=== PATIENT | female | born 1960 | race Caucasian/White ===

== ENCOUNTER → 2017-11-15 | Outpatient (CLI) | payer BC ==
[~2017-11-15] MED LIST: ACID REDUCER PO; CHOL100010 PO; CLC100; CLCC1250 PO; CMDUNK; FRRS300 PO; LRT5 PO; MULT-513 PO; OMEG10007 PO; POTASSIUM PO; PRCUNK; SIMV20TA2 PO
--- NOTE | 2017-11-16 14:34 | MAMMOGRAPHY REPORT ---
BILATERAL DIGITAL SCREENING MAMMOGRAM TOMOSYNTHESIS WITH CAD: 11/15/2017 CLINICAL HISTORY: Routine screening. TECHNIQUE: Breast tomosynthesis in addition to standard 2D mammography was performed. Current study was also evaluated with a Computer Aided Detection (CAD) system. COMPARISON: Comparison is made to exams dated: 11/09/2016 mammogram, 11/05/2015 mammogram, 4 mammogram, 04/07/2011 mammogram - [facility], 11/16/2009 mammogram, and 05/25/2007 mammogram - [facility]. BREAST COMPOSITION: There are scattered areas of fibroglandular density in both breasts. FINDINGS: Multiple bilateral circumscribed fluctuating masses are again seen in the breasts, most lik grace functioning cysts. There are a few benign rim calcifications. No suspicious spiculated or irreg ular mass, architectural distortion or cluster of suspicious microcalcifications is seen. IMPRESSION: ACR BI-RADS CATEGORY 1: NEGATIVE There is no mammographic evidence of malignancy. A 1 year screening mammogram is recommended. The pa tient will receive written notification of the results. Approximately 10% of breast cancers are not detected with mammography. A negative mammographic report should not delay biopsy if a clinically suggestive mass is present. Justine Jane M.D. ay/:11/15/2017 17:11:51 Wrapper Stemmer Hand: Leda JONES(R)(M), [facility] letter sent: Normal 1/2 BI-RADS Code: ACR BI-RADS Category 1: Negative
== END | disposition home or self-care (01) ==
LOC: C.MAMM 16:51
PROVIDERS: ATTEND Family Medicine
DX: Z12.31 Encounter for screening mammogram for malignant neoplasm of breast (principal)

== ENCOUNTER → 2018-02-09 | Outpatient (CLI) | payer OTHER | END | disposition home or self-care (01) | LOC: C.PAPS 18:19 | PROVIDERS: ATTEND Family Medicine | DX: Z01.419 Encounter for gynecological examination (general) (routine) without abnormal findings (principal) ==

== ENCOUNTER 2022-10-26 10:40 | Inpatient (IN) ==
[2022-10-26] MEDS ORDERED: PIPERACILLIN/TAZOBACTAM 4.5 GM/120 ML BAG IV ONE (10:56)
[2022-10-26] MEDS ORDERED: SODIUM CHLORIDE 0.9% 1000ML 1,000 ML IV ONE (10:56)
[2022-10-26] MEDS ORDERED: ACETAMINOPHEN 1,000 MG/100 ML VIAL IV STA (10:56)
[2022-10-26 11:37] LABS: Basophils # (auto) 0.04 K/uL (0-0.2); Basophils % (auto) 0.4 %; Hematocrit (blood only) 40.2 % (34.1-44.9); Hemoglobin 13.4 g/dl (12.0-16.0); Immature Granulocytes # (auto) 0.03 K/uL (0.00-0.02); Immature Granulocytes % (auto) 0.3 %; Lymphocytes # (auto) 1.86 K/uL (1.2-3.4); Lymphocytes % (auto) 17.6 %; Mean Corpuscular Hemoglobin 28.1 pg (25.0-34.0); Mean Corpuscular Hgb Conc 33.3 g/dL (32.0-36.0); Mean Corpuscular Volume 84.3 fL (80.0-100.0); Mean Platelet Volume 9.7 fL (9.4-12.3); Monocytes # (auto) 0.99 K/uL (0.24-0.82); Monocytes % (auto) 9.3 %; Neutrophils # (auto) 7.67 K/uL (1.4-6.5); Neutrophils % (auto) 72.4 %; Platelet Count 353 K/uL (130-400); RDW Coefficient of Variation 14.5 % (11.5-14.5); RDW Standard Deviation 44.3 fL (36.4-46.3); Red Blood Count 4.77 M/uL (3.93-5.22); White Blood Count 10.59 K/ul (4.8-10.8)
[2022-10-26 12:02] LABS: Albumin Globulin Ratio 1.2 (0.9-2); Albumin Level 4.2 gm/dl (3.4-5.0); BUN Creatinine Ratio 11.7 (10-20); Bilirubin,Total 0.7 mg/dl (0.2-1.0); Calcium 10.3 mg/dl (8.5-10.1); Creatinine Clr Calc Pharmacy 46.4 ml/min; Est GFR (African American) 74.8 ml/min; Est GFR (Non-African American) 64.6 ml/min; Globulin 3.4 gm/dl (2.5-4.0); Potassium 3.6 mmol/L (3.5-5.1); Total Protein 7.6 gm/dl (6.0-8.3)
--- NOTE | 2022-10-26 12:23 | Emergency Department Note ---
Impression & Plan Diverticulitis of intestine with abscess, Left lower quadrant abdominal pain, Nausea ED Provider Note NAME: VANDANA VALENCIA AGE: 61 SEX: F ARRIVES VIA: Walk-In INFORMANT: ED PROVIDER(S): Scotty Pugh MD CHIEF COMPLAINT: Abdominal pain, diverticulitis with intramural abscess. Referred. PLAN: Disposition: Admit MEDICAL DECISION MAKING: The patient is a pleasant 61-year-old woman with a pmhx GERD who presents to the emergency department referred by her PCP for evaluation after having outpatient CT scan for left lower quadrant abdominal pain that showed diverticulitis with intramural abscess not amenable to percutaneous drainage. Patient reports she has had ongoing pain for the past month that worsened over the past week with associated nausea and vomiting that admits she has a history of reflux as well. She is also had intermittent diarrhea. She denies fevers, chest pain, shortness of breath, urinary symptoms. She has any prior history of diverticulitis. On arrival the patient is in no acute distress, afebrile with stable vital signs. She has mild left lower quadrant tenderness without guarding or rebound. WBC, H/H and platelets within normal limits. Chemistry without metabolic acidosis. Electrolytes and LFTs unremarkable. Lipase within normal limits. COVID-19 RNA, RAYNA test was negative. Blood cultures were drawn and patient was ordered for IV Zosyn given intramural abscess. Patient agrees with plan for admission. Case was discussed with [place]. Jules, [facility] [place], who will evaluate the patient for admission. Triage Nursing notes reviewed and agree them. Prior medical records reviewed Vital Signs: reviewed Differential diagnosis: Gastroenteritis, food borne illness, infections, appendicitis, diverticulitis, inflammatory bowel disease, obstruction, GI bleed, biliary pathology, volvulus, as well as other pathologies. ER treatment provided: See below. Diagnostics interpreted by me: Cardiac Monitoring: An order for continuous cardiac monitoring was placed and demonstrated normal sinus rhythm, 69 bpm, no ectopy. Laboratory studies: See below Imaging studies: See below Consultation(s): Case was discussed with Dr. Jules, [facility] [place], who will evaluate the patient for admission. HPI: The patient is a pleasant 61-year-old woman with a pmhx GERD who presents to the emergency department referred by her PCP for evaluation after having outpatient CT scan for left lower quadrant abdominal pain that showed diverticulitis with intramural abscess not amenable to percutaneous drainage. Patient reports she has had ongoing pain for the past month that worsened over the past week with associated nausea and vomiting that admits she has a history of reflux as well. She is also had intermittent diarrhea. She denies fevers, chest pain, shortness of breath, urinary symptoms. She has any prior history of diverticulitis. ROS: See above HPI for pertinent positives & negatives. A total of 10 systems reviewed and were otherwise negative. VITALS:See Below PHYSICAL EXAMINATION: GENERAL: Awake, alert, well-appearing, in no distress HENT: Normocephalic, atraumatic. Oropharynx with dry mucous membranes and otherwise unremarkable. EYES: Normal conjunctiva. Sclera non-icteric. NECK: Supple. No nuchal rigidity. FROM. No JVD. RESPIRATORY: Clear to auscultation. CARDIAC: Regular rate, normal rhythm. Extremities warm and well perfused. Pulses equal. ABDOMEN: Soft, non-distended. Mild left lower quadrant tenderness without guarding or rebound. RECTAL: Deferred. MUSCULOSKELETAL: Chest examination reveals no tenderness. The back is symmetrical on inspection without obvious abnormality. There is no CVA tenderness to palpation. No joint edema. LOWER EXTREMITIES: Calves are equal size bilaterally and non-tender. No edema. No discoloration. NEURO: Normal sensorium. No sensory or motor deficits noted. SKIN: No rash or jaundice noted. Scotty Pugh MD Past Med/Surg History Medical History Gastritis Hyperlipidemia Internal hemorrhoids Major depression, recurrent Surgical History H/O arthroscopic knee surgery History of colonoscopy History of hip surgery Family History Mother Stroke CHF (congestive heart failure) Brother Rheumatic fever Social History Smoking Status: Never smoker Hx Alcohol Use: No Hx Substance Use: No Preferred Language: Hebrew Visual Impairment: Limited Hearing Ability: Hard of Hearing marital status: Current Living Situation: Spouse current occupational status: unemployed Feels Safe at Home: Yes Childhood Exposure to Second-Hand Smoke: Yes Dental Care, Regularly: Yes Physical Activity Frequency: Does not Exercise Seatbelt Use: always Sunscreen Use: Yes Allergies Allergies Allergy/AdvReac Type Severity Reaction Status Date / Time No Known Allergies Allergy Unknown Verified 10/26/22 12:47 Home Meds Home Medications Medication Instructions Recorded Confirmed garlic 500 mg capsule 500 mg PO DAILY 08/20/21 10/26/22 diclofenac sodium 1 % topical gel 2 g topical QID PRN Pain 02/03/22 10/26/22 (Voltaren Arthritis Pain) escitalopram oxalate 20 mg tablet 20 mg PO QPM 10/26/22 10/26/22 Previous Rx's Medication Instructions Recorded multivitamin 1 tab PO DAILY #90 tabs 07/01/19 clotrimazole-betamethasone 1 1 appln topical BID #45 grams 07/08/19 %-0.05 % topical cream hydrocortisone 2.5 % topical cream 1 applic [place] DAILY PRN hemorrhoids 02/03/22 with perineal applicator #30 grams (Anusol-HC) bupropion HCl 150 mg tablet,12 hr 300 mg PO DAILY PRN depression 08/15/22 sustained-release (Wellbutrin SR) #180 ea lurasidone 20 mg tablet (Latuda) 20 mg PO DAILY #90 tabs 08/15/22 omeprazole 20 mg capsule,delayed 20 mg PO BID #180 caps 08/15/22 release lovastatin 40 mg tablet 40 mg PO HS #90 tabs 08/22/22 Results & Data (ED) Vital Signs Vital Signs - 24 hr 10/26/22 10:43 10/26/22 11:16 10/26/22 11:16 Temperature 36.8 C Temperature Source Temporal Artery Scan Pulse Rate 80 Pulse Rate [Apical] 72 Pulse Rhythm [Apical] Regular Pulse Strength [Apical] Normal Respiratory Rate 18 17 Respiratory Effort / Characteristics Non-Labored Respiratory Depth Normal Respiratory Pattern Regular Blood Pressure 144/88 H Blood Pressure [Left Arm] 121/62 Blood Pressure Mean 106 Blood Pressure Mean [Left Arm] 81 Blood Pressure Position [Left Arm] Lying Pulse Oximetry 93 94 94 Oxygen Delivery Method Room Air Room Air Room Air Sepsis Recent Fever Within 48 Hours No Sepsis New/Unexplained Change in Mental Status No Sepsis Action Taken by Nursing No Action Required Laboratory Data Attestation: I reviewed the patient's lab results. Result diagrams: 10/26/22 11:20 10/26/22 11:20 Lab Results 10/26/22 10/26/2210/26/22 Range/Units 11:20 11:20 11:31 WBC 10.59 (4.8-10.8) K/ul RBC 4.77 (3.93-5.22) M/uL Hgb 13.4 (12.0-16.0) g/dl Hct 40.2 (34.1-44.9) % MCV 84.3 (80.0-100.0) fL MCH 28.1 (25.0-34.0) pg MCHC 33.3 (32.0-36.0) g/dL RDW Std Deviation 44.3 (36.4-46.3) fL RDW Coeff of Patrica 14.5 (11.5-14.5) % Plt Count 353 (130-400) K/uL MPV 9.7 (9.4-12.3) fL Immature Gran % (Auto) 0.3 % Neut % (Auto) 72.4 % Lymph % (Auto) 17.6 % Glenn % (Auto) 9.3 % Eos % (Auto) 0.0 % Baso % (Auto) 0.4 % Neut # (Auto) 7.67 H (1.4-6.5) K/uL Lymph # (Auto) 1.86 (1.2-3.4) K/uL Glenn # (Auto) 0.99 H (0.24-0.82) K/uL Eos # (Auto) 0.00 (0-0.50) K/uL Baso # (Auto) 0.04 (0-0.2) K/uL Immature Gran # (Auto) 0.03 H (0.00-0.02) K/uL Sodium 140 (136-145) mmol/L Potassium 3.6 (3.5-5.1) mmol/L Chloride 103 (98-107) mmol/L Carbon Dioxide 28 (21-32) mmol/L Anion Gap 9 (3-11) BUN 11 (6-23) mg/dl Creatinine 0.94 (0.6-1.2) mg/dl Est Cr Clr Drug Dosing 46.4 ml/min Est GFR ( Amer) 74.8 ml/min Est GFR (Non-Af Amer) 64.6 ml/min BUN/Creatinine Ratio 11.7 (10-20) Glucose 113 H (70-99(Fasting)) mg/dl Calcium 10.3 H (8.5-10.1) mg/dl Total Bilirubin 0.7 (0.2-1.0) mg/dl AST 24 (13-39) U/L ALT 31 (7-52) U/L Alkaline Phosphatase 118 H (34-104) U/L Total Protein 7.6 (6.0-8.3) gm/dl Albumin 4.2 (3.4-5.0) gm/dl Globulin 3.4 (2.5-4.0) gm/dl Albumin/Globulin Ratio 1.2 (0.9-2) Lipase 12 (11-82) U/L SARS-CoV-2, RNA, NAAT NEGATIVE (NEGATIVE) Administered Medications Piperacillin Sod/Tazobactam (Sod 3.375 gm/ Dextrose) 115 mls @ 30 mls/hr IV Q8H FOR[facility]LY [facility], 1928–1983; Protocol Stop: 11/05/22 15:59 Last Admin: 10/26/22 16:44 Dose: 30 mls/hr Documented By: HEIKE Potassium Chloride/Sodium Chloride (Normal Saline W/20 Meq Kcl) 20 meq in 1,000 mls @ 85 mls/hr IV .[id number] FOR[facility]LY [facility], 1928–1983; Protocol Stop: 11/25/22 15:13 Last Admin: 10/26/22 16:44 Dose: 85 mls/hr Documented By: HEIKE Morphine Sulfate (Morphine Sulfate 4 Mg/Ml 1 Ml Carp\Vial) 4 mg IV Q4 PRN PRN Reason: Severe Pain Stop: 11/09/22 15:13 Last Admin: 10/26/22 16:52 Dose: 4 mg Documented By: RSMagno Ondansetron HCl (Ondansetron Inj 2 Mg/Ml 2 Ml Vial) 4 mg IV Q6H PRN PRN Reason: Nausea Stop: 11/25/22 15:13 Last Admin: 10/26/22 16:53 Dose: 4 mg Documented By: RSMagno Discontinued Medications Sodium Chloride (Nss 1000ml) 1,000 mls @ 999 mls/hr IV .Q1H1M ONE Stop: 10/26/22 11:56 Last Infusion: 10/26/22 12:31 Dose: 0 mls/hr Documented By: RSMagno Admin: 10/26/22 11:19 Dose: 999 mls/hr Documented By: RSMagno Acetaminophen (Ofirmev) 1,000 mg in 100 mls @ 400 mls/hr IV NOW STA Stop: 10/26/22 11:10 Last Infusion: 10/26/22 11:46 Dose: 0 mls/hr Documented By: Admin: 10/26/22 11:25 Dose: 400 mls/hr Documented By: HEIKE Piperacillin Sod/Tazobactam Sod (Zosyn) 4.5 gm in 120 mls @ 240 mls/hr IV NOW ONE Stop: 10/26/22 11:25 Last Infusion: 10/26/22 12:03 Dose: 0 mls/hr Documented By: Admin: 10/26/22 11:26 Dose: 240 mls/hr Documented By: HEIKE Imaging Data Radiologist's Impression: OUTPATIENT CT: CT SCAN OF THE ABDOMEN AND PELVIS WITH IV CONTRAST CLINICAL HISTORY: Lower abdominal pain. COMPARISON STUDY: Abdominal CT dated 02/03/2022. TECHNIQUE: Following the IV administration of 87 cc of Optiray 350, CT scan of the abdomen and pelvis is performed from the lung bases to the proximal femora. Images are reviewed in the axial, sagittal, and coronal planes. IV contrast was administered without complication. A dose lowering technique was utilized adhering to the principles of ALARA. CT DOSE: 323.16 mGy.cm FINDINGS: Lung bases: The heart is normal in size and without pericardial effusion. There are scattered calcified granulomas. Scarring/atelectasis is noted at both lung bases. No airspace consolidation typical of pneumonia or pleural effusion is identified. There is a moderate to large hiatal hernia. Liver: The contrast-enhanced liver is normal in size, contour, and attenuation. There is no intrahepatic biliary ductal dilatation. The hepatic veins and portal veins are patent. Gallbladder: Surgically absent noting clips in the gallbladder fossa. Spleen: Normal in size and attenuation. Pancreas: Unremarkable. Adrenal glands: An 11 mm left adrenal nodule is unchanged and likely represents a small adenoma. The right adrenal gland is normal in appearance. Kidneys: The contrast enhanced kidneys are normal in size and without hydronephrosis. The kidneys enhance symmetrically. Abdominal vasculature: The abdominal aorta is normal in course and caliber. Bowel: There is moderate sigmoid diverticulosis. There is wall thickening with pericolonic inflammation and fluid involving the sigmoid colon consistent with acute diverticulitis. A small loculated intramural abscess on axial image #257 measures 2.3 x 1.2 cm. There is moderate colonic fecal retention. No bowel obstruction is seen. The appendix is well-visualized and normal. Peritoneum: There is no intraperitoneal free air or abdominal ascites. There is a fat-containing umbilical hernia. Lymphadenopathy: None. Pelvic viscera: Evaluation of the pelvis is significantly degraded by streak artifact from bilateral hip arthroplasties. The bladder is decompressed and appears circumferentially thick walled. The uterus and adnexa are normal as visualized. Skeletal structures: The skeletal structures are osteopenic. No lytic or blastic lesions are seen. Chronic thoracolumbar compression deformities are similar to previous. There is mild lumbosacral spondylosis and scoliosis. Bilateral hip arthroplasties are in place. IMPRESSION: 1. Acute sigmoid diverticulitis. 2. There is a 2.3 x 1.2 cm intramural abscess. This is not amenable to percutaneous drainage. 3. No intraperitoneal free air is identified. 4. The bladder is decompressed and appears circumferentially thick walled. Correlate with clinical findings and urinalysis. 5. Moderate to large hiatal hernia. 6. Additional findings as above. ACT 112: Negative or not required by law. Electronically signed by: Joon Hanson M.D. 10/26/2022 9:21 AM Dictated:10/26/22913 Transcribed: 10/26/22913 Discharge Plan Visit Data Chief Complaint: Abdominal Pain Stated Complaint: REF BY , NEED IV FLUID ED Provider: Scotty Pugh Discharge Problem: Diverticulitis of intestine with abscess, Left lower quadrant abdominal pain, Nausea Patient Disposition: Admitted As Inpatient Discharge Instructions Interventions: ED Discharge Assessment Last Done: 10/26/22 15:00
--- NOTE | 2022-10-26 12:38 | History & Physical Report ---
Date of Service October 26, 2022 Assessment & Plan (1) Diverticulitis: Plan: Patient has diverticulitis with intramural abscess. Patient will be continued on Zosyn therapy. Patient be on n.p.o. with IV fluids. Patient have surgical evaluation. Blood cultures have been obtained. Patient status post colonoscopy and EGD October 20, 2021 by [facility] gastroenterology Dr. Grande, which showed small larg[place] diverticula otherwise normal colon, patient had esophagus biopsied for Anderson's which was negative at that time (2) GERD with esophagitis: Plan: As mentioned above the patient had negative Anderson's on previous evaluation in 2020 we will continue PPI (3) Major depression, recurrent: Plan: Patient continues on Wellbutrin (only supposed be once a day) Latuda and Lexapro (4) Hyperlipidemia: Plan: Patient is on lovastatin which will be held Plan DVT prevention will be heparin in case of surgical intervention will be required. Patient is a full code Of note patient is a [employer] in case there would be any need for concern of blood products History of Present Illness Primary Care Provider: Brendon Garay DO 61F referred by her PCP for evaluation after having outpatient CT scan for left lower quadrant abdominal pain that showed diverticulitis with intramural abscess 2.3x1.2 cm. Radiology notes not amenable to percutaneous drainage. Patient reports she has had ongoing pain for the past month that worsened over the past week with associated nausea and vomiting that admits she has a history of reflux as well. She is also had intermittent diarrhea. She denies fevers, chest pain, shortness of breath, urinary symptoms. She has any prior history of diverticulitis. IN the ER she was started on Zosyn COVID-negative Allergies Allergy/AdvReac Type Severity Reaction Status Date / Time No Known Allergies Allergy Unknown Verified 10/26/22 12:47 Home Medications Medication Instructions Recorded Confirmed Type multivitamin 1 tab PO DAILY #90 tabs 07/01/19 10/26/22 Rx clotrimazole-betamethasone 1 1 appln topical BID #45 grams 07/08/19 10/26/22 Rx %-0.05 % topical cream garlic 500 mg capsule 500 mg PO DAILY 08/20/21 10/26/22 History diclofenac sodium 1 % topical gel 2 g topical QID PRN Pain 02/03/22 10/26/22 History (Voltaren Arthritis Pain) hydrocortisone 2.5 % topical cream 1 applic [place] DAILY PRN hemorrhoids 02/03/22 10/26/22 Rx with perineal applicator #30 grams (Anusol-HC) bupropion HCl 150 mg tablet,12 hr 300 mg PO DAILY PRN depression 08/15/22 10/26/22 Rx sustained-release (Wellbutrin SR) #180 ea lurasidone 20 mg tablet (Latuda) 20 mg PO DAILY #90 tabs 08/15/22 10/26/22 Rx omeprazole 20 mg capsule,delayed 20 mg PO BID #180 caps 08/15/22 10/26/22 Rx release lovastatin 40 mg tablet 40 mg PO HS #90 tabs 08/22/22 10/26/22 Rx escitalopram oxalate 20 mg tablet 20 mg PO QPM 10/26/22 10/26/22 History Past Med/Surg History Medical History Gastritis Hyperlipidemia Internal hemorrhoids Major depression, recurrent Surgical History H/O arthroscopic knee surgery History of colonoscopy History of hip surgery Family History Mother Stroke CHF (congestive heart failure) Brother Rheumatic fever Social History Smoking Status: Never smoker Hx Alcohol Use: No Hx Substance Use: No Preferred Language: Syriac Visual Impairment: Limited Hearing Ability: Hard of Hearing marital status: Current Living Situation: Spouse current occupational status: unemployed Feels Safe at Home: Yes Childhood Exposure to Second-Hand Smoke: Yes Dental Care, Regularly: Yes Physical Activity Frequency: Does not Exercise Seatbelt Use: always Sunscreen Use: Yes Review of Systems Review of Systems: Mild distress and fatigue no headache, no visual changes no speech or swallowing issues no chest pain, pressure or palpitations No shortness of breath cough or congestion 1 month prehospital abdominal pain, mostly lower quadrants, with associated nausea & vomiting, did have loose bowel movements no dysuria, hematuria or frequency no focal joint pain or swelling no back pain, CVA tenderness or radicular pain no bruising, bleeding or rashes no focal signs of weakness or numbness or altered sensation no complaints of anxiety or depression.. Physical Exam Physical Exam: The patient appeared well nourished and normally developed. Vital signs as documented. Head exam is normocephalic atraumatic Neck is without JVD, thyromegaly, or carotid bruits. Lungs are clear to auscultation, no focal loss of breath sounds Cardiac exam, Rhythm is regular.. No murmurs, rubs or gallops. Abdominal exam reveals normal bowel sounds, soft minor lower quadrant tenderness improved from admission to the ER Extremities are nonedematous and both pedal pulses are present Neurologic exam is alert and oriented, no focal loss of strength or sensation Skin is without bruises or rashes Psychologically is without concerns for anxiety or depression.. Results & Data Results & Data ([facility] Vital Signs (Past 12 Hours) Vital Signs Temp Pulse Pulse Resp BP BP Pulse Ox 10/26/22 11:16 94 10/26/22 11:16 72 17 121/62 94 10/26/22 10:43 98.2 F 80 18 144/88 H 93 O2 Del Method 10/26/22 11:16 Room Air 10/26/22 11:16 Room Air 10/26/22 10:43 Room Air Diagnostic Findings CT scan abdomen pelvis performed 10/26/2022 as an outpatient IMPRESSION: 1. Acute sigmoid diverticulitis. 2. There is a 2.3 x 1.2 cm intramural abscess. This is not amenable to percutaneous drainage. 3. No intraperitoneal free air is identified. 4. The bladder is decompressed and appears circumferentially thick walled. Correlate with clinical findings and urinalysis. 5. Moderate to large hiatal hernia. PG Care Time/CCT Total # of Minutes Spent Total Time Spent with Patient: Total time spent is greater than 50% in coordination of care (as documented) at patient's floor/unit and/or counseling patient: Coding Level of Care Code 01637 Initial Inpt Care Lvl 2 Diagnoses Diverticulitis K57.92 GERD with esophagitis K21.00 Major depression, recurrent F33.9 Hyperlipidemia E78.5
--- NOTE | 2022-10-26 15:04 | Surgery Consultation ---
Date of Consultation October 26, 2022 Assessment & Plan (1) Diverticulitis: 2 cm diverticular abscess, no acute abdominal findings. Zosyn ordered. Can have ice/sips for tonight, advance diet over next few days as symptoms improve. History of Present Illness History of Present Illness 61-year-old female with lower abdominal pain that began several days ago and increases after eating. Diverticulosis was noted on colonoscopy last year although she has not had diverticulitis in the past. She had outpatient CT today and was referred to the emergency room for diverticular abscess. She has had hot and cold flashes over the past few days. She has been having watery or loose diarrhea. Allergies Allergy/AdvReac Type Severity Reaction Status Date / Time No Known Allergies Allergy Unknown Verified 10/26/22 12:47 Home Medications Medication Instructions Recorded Confirmed Type multivitamin 1 tab PO DAILY #90 tabs 07/01/19 10/26/22 Rx clotrimazole-betamethasone 1 1 appln topical BID #45 grams 07/08/19 10/26/22 Rx %-0.05 % topical cream garlic 500 mg capsule 500 mg PO DAILY 08/20/21 10/26/22 History diclofenac sodium 1 % topical gel 2 g topical QID PRN Pain 02/03/22 10/26/22 History (Voltaren Arthritis Pain) hydrocortisone 2.5 % topical cream 1 applic [place] DAILY PRN hemorrhoids 02/03/22 10/26/22 Rx with perineal applicator #30 grams (Anusol-HC) bupropion HCl 150 mg tablet,12 hr 300 mg PO DAILY PRN depression 08/15/22 10/26/22 Rx sustained-release (Wellbutrin SR) #180 ea lurasidone 20 mg tablet (Latuda) 20 mg PO DAILY #90 tabs 08/15/22 10/26/22 Rx omeprazole 20 mg capsule,delayed 20 mg PO BID #180 caps 08/15/22 10/26/22 Rx release lovastatin 40 mg tablet 40 mg PO HS #90 tabs 08/22/22 10/26/22 Rx escitalopram oxalate 20 mg tablet 20 mg PO QPM 10/26/22 10/26/22 History Patient History Medical History Gastritis Hyperlipidemia Internal hemorrhoids Major depression, recurrent Surgical History H/O arthroscopic knee surgery History of colonoscopy History of hip surgery Family History Mother Stroke CHF (congestive heart failure) Brother Rheumatic fever Social History Smoking Status: Never smoker Hx Alcohol Use: No Hx Substance Use: No Preferred Language: Tongan Visual Impairment: Limited Hearing Ability: Hard of Hearing marital status: Current Living Situation: Spouse current occupational status: unemployed Feels Safe at Home: Yes Childhood Exposure to Second-Hand Smoke: Yes Dental Care, Regularly: Yes Physical Activity Frequency: Does not Exercise Seatbelt Use: always Sunscreen Use: Yes Review of Systems Constitutional: + chills; no fever Gastrointestinal: + abdominal pain and + diarrhea/loose stools; no nausea and no vomiting Physical Exam Constitutional: WD/WN, vitals as above Respiratory: normal respiratory effort, lungs clear to auscultation Cardiovascular: RRR, no murmur, no edema Gastrointestinal (Abdomen): Inspection/Auscultation: abdomen not distended Percussion/Palpation: + abdomen tender and abdomen soft; no guarding (left suprapubic) Skin: no rashes, warm and dry Results & Data ([facility]) Vital Signs (Past 12 Hours) Vital Signs Temp Pulse Pulse Resp BP BP Pulse Ox 10/26/22 13:00 70 18 111/66 95 10/26/22 11:16 94 10/26/22 11:16 72 17 121/62 94 10/26/22 10:43 36.8 C 80 18 144/88 H 93 O2 Del Method 10/26/22 13:00 Room Air 10/26/22 11:16 Room Air 10/26/22 11:16 Room Air 10/26/22 10:43 Room Air PG Care Time/CCT Total # of Minutes Spent Total Time Spent with Patient: Total time spent is greater than 50% in coordination of care (as documented) at patient's floor/unit and/or counseling patient: Coding Level of Care Code 94590 Inpt Consult Level 3 Diagnoses Diverticulitis K57.92
[2022-10-26] MEDS ORDERED: HYDROCORTISONE HC 2.5% CRM 30GM TUBE EXT PRN (15:14)
[2022-10-26] MEDS ORDERED: ONDANSETRON INJ 2 MG/ML 2 ML VIAL IV PRN (15:14)
[2022-10-26] MEDS ORDERED: ACETAMINOPHEN 500 MG TAB PO PRN (15:14)
[2022-10-26] MEDS ORDERED: ALUMINUM/MAGNESIUM SUSP 30 ML UDC PO PRN (15:14)
[2022-10-26] MEDS ORDERED: MoRPHine SULFATE 4 MG/ML 1 ML CARP\\VIAL IV PRN (15:14)
[2022-10-26] MEDS ORDERED: DICLOFENAC SOD 1% GEL 100 GM TUBE EXT PRN (15:14)
[2022-10-26] MEDS ORDERED: MoRPHine SULFATE 2 MG/ML CARP IV PRN (15:14)
[2022-10-26] MEDS: PIPERACILLIN/TAZOBACTAM 3.375 GM in DEXTROSE 5% 100 ML IV SCH (16:44)
[2022-10-26] MEDS: NSS + 20MEQ KCL 20 MEQ/1,000 ML BAG IV SCH (16:44)
[2022-10-26 17:05] LABS: Appearance Urine Clear (Clear); Bilirubin Urine Negative (Negative); Blood Urine Negative (Negative); Color Urine Yellow; Glucose Urine UA Negative (Negative); Ketones Urine Negative (Negative); Leukocyte Esterase Urine Negative (Negative); Nitrite Urine Negative (Negative); Protein Urine Negative (Negative); Specific Gravity Urine > 1.045 (1.000-1.030); Urobilinogen Urine Negative (Negative); pH Urine 5.5 (4.5-7.5)
[2022-10-26] MEDS: PANTOprazole 40 MG TAB PO SCH (22:42)
[2022-10-26] MEDS: HEPARIN SOD 5,000 UNIT/0.5 ML VIAL SQ SCH (22:44)
[2022-10-27] MEDS: PIPERACILLIN/TAZOBACTAM 3.375 GM in DEXTROSE 5% 100 ML IV SCH ×4 (00:11→23:37)
[2022-10-27] MEDS: NSS + 20MEQ KCL 20 MEQ/1,000 ML BAG IV SCH ×2 (05:47→16:26)
[2022-10-27 07:31] LABS: Hematocrit (blood only) 33.8 % (34.1-44.9); Mean Corpuscular Hemoglobin 28.4 pg (25.0-34.0); Mean Corpuscular Hgb Conc 32.5 g/dL (32.0-36.0); Mean Corpuscular Volume 87.1 fL (80.0-100.0); Mean Platelet Volume 9.4 fL (9.4-12.3); Platelet Count 279 K/uL (130-400); RDW Coefficient of Variation 14.6 % (11.5-14.5); RDW Standard Deviation 46.1 fL (36.4-46.3); Red Blood Count 3.88 M/uL (3.93-5.22); White Blood Count 8.14 K/ul (4.8-10.8)
[2022-10-27 07:55] LABS: BUN Creatinine Ratio 10.6 (10-20); Calcium 8.7 mg/dl (8.5-10.1); Creatinine Clr Calc Pharmacy 52.1 ml/min; Est GFR (African American) 84.5 ml/min; Est GFR (Non-African American) 72.9 ml/min; Potassium 3.9 mmol/L (3.5-5.1)
--- NOTE | 2022-10-27 08:12 | Hospitalist Progress Note ---
Date of Service October 27, 2022 Assessment & Plan (1) Diverticulitis: Plan: Patient has diverticulitis with intramural abscess. Continued on Zosyn therapy. Blood cultures have been obtained and are pending. (Prelim Neg) Patient status post colonoscopy and EGD October 20, [address] [facility] gastroenterology Dr. Grande, which showed small largemouth diverticula otherwise normal colon, patient had esophagus biopsied for Anderson's which was negative at that time. She continues on PPI Surgery evaluated patient and advanced her diet from ice chips to clear liquids for lunch today (2) GERD with esophagitis: Plan: As mentioned above the patient had negative Anderson's on previous evaluation in 2020 Continue PPI (3) Major depression, recurrent: Plan: Patient continues on Wellbutrin (only supposed be once a day) Latuda and Lexapro (4) Hyperlipidemia: Plan: Patient is on lovastatin which has been held Plan Discussed patient with Dr Metz who assisted in the management of this patient. DVT prevention will be heparin in case of surgical intervention will be required. Patient is a full code Of note patient is a [employer] in case there would be any need for concern of blood products Admission and Anticipated Discharge Date Admission Date: October 26, 2022 Subjective Patient seen on rounds this AM. Patient tells me she is feeling much better today. Surgery advanced her diet to clear liquids and is to have this for lunch. She denies any nausea, vomiting or abdominal pain today. She tells me that last night she had some mild abdominal discomfort that was relieved with some Tylenol. She is passing flatus. She has not had any BMs since admission. Review of Systems Constitutional: no fever, no chills and no weight loss Eyes: no blind spots, no diplopia and no spots in vision Respiratory: no cough, no chest congestion and no dyspnea Cardiovascular: no chest pain, no dyspnea and no syncope Gastrointestinal: + abdominal pain; no nausea, no vomiting and no dysphagia Genitourinary: no dysuria, no urinary frequency and no urinary hesitancy Integumentary: no rash, no lesions and no sores Physical Exam Constitutional: well developed, well nourished and cooperative ENMT: external ear and nose normal, oropharynx normal Neck: trachea midline, no thyromegaly Respiratory: normal respiratory effort, lungs clear to auscultation Cardiovascular: RRR, no murmur, no edema Gastrointestinal (Abdomen): normal bowel sounds, soft, nontender, no hepatosplenomegaly Psychiatric: A+Ox3, euthymic affect Results & Data Results & Data ([facility]) Vital Signs (Past 12 Hours) Vital Signs Temp Pulse Resp BP Pulse Ox O2 Del Method 10/26/22 20:30 Room Air 10/26/22 22:44 36.9 C 65 18 103/63 94 Room Air Laboratory Results Laboratory Results - last 24 hr 10/26/22 10/27/22 10/27/22 16:47 07:15 07:15 WBC 8.14 RBC 3.88 L Hgb 11.0 L Hct 33.8 L MCV 87.1 MCH 28.4 MCHC 32.5 RDW Std Deviation 46.1 RDW Coeff of Patrica 14.6 H Plt Count 279 MPV 9.4 Sodium 141 Potassium 3.9 Chloride 110 H Carbon Dioxide 27 Anion Gap 4 BUN 9 Creatinine 0.85 Est Cr Clr Drug Dosing 52.1 Est GFR ( Amer) 84.5 Est GFR (Non-Af Amer) 72.9 BUN/Creatinine Ratio 10.6 Glucose 90 Calcium 8.7 Urine Color Yellow Urine Appearance Clear Urine pH 5.5 Ur Specific [place] > 1.045 H Urine Protein Negative Urine Glucose (UA) Negative Urine Ketones Negative Urine Blood Negative Urine Nitrite Negative Urine Bilirubin Negative Urine Urobilinogen Negative Ur Leukocyte Esterase Negative Hepatitis C Ab (EIA) Hep C Ab Signal/Cutoff 10/27/22 07:15 WBC RBC Hgb Hct MCV MCH MCHC RDW Std Deviation RDW Coeff of Patrica Plt Count MPV Sodium Potassium Chloride Carbon Dioxide Anion Gap BUN Creatinine Est Cr Clr Drug Dosing Est GFR ( Amer) Est GFR (Non-Af Amer) BUN/Creatinine Ratio Glucose Calcium Urine Color Urine Appearance Urine pH Ur Specific [place] Urine Protein Urine Glucose (UA) Urine Ketones Urine Blood Urine Nitrite Urine Bilirubin Urine Urobilinogen Ur Leukocyte Esterase Hepatitis C Ab (EIA) Pending Hep C Ab Signal/Cutoff Pending PG Care Time/CCT Total # of Minutes Spent Total Time Spent with Patient: Total time spent is greater than 50% in coordination of care (as documented) at patient's floor/unit and/or counseling patient: [place] [address] Subseq Hosp Care Lvl 3 Patient Type Established History Detailed Exam Detailed Medical Decision Making Moderate Complexity Diagnoses Diverticulitis K57.92 GERD with esophagitis K21.00 Major depression, recurrent F33.9 Hyperlipidemia E78.5 Time Spent (min) 30
[2022-10-27] MEDS: HEPARIN SOD 5,000 UNIT/0.5 ML VIAL SQ SCH ×2 (09:05→20:38)
[2022-10-27] MEDS: buPROPion SR 150 MG TABCR PO SCH (09:05)
[2022-10-27] MEDS: LURASIDONE HCL 40 MG TAB PO SCH (09:05)
[2022-10-27] MEDS: ESCITALOPRAM OXALATE 20 MG TAB PO SCH (09:05)
[2022-10-27] MEDS: PANTOprazole 40 MG TAB PO SCH ×2 (09:06→20:39)
--- NOTE | 2022-10-27 12:58 | Surgery Progress Note ---
Date of Service October 27, 2022 Assessment & Plan (1) Diverticulitis of intestine with abscess: Plan: improved continue Zosyn start on clears Admission and Anticipated Discharge Date Admission Date: October 26, 2022 Supervising Physician Co-Signing Physician Notes I personally saw and evaluated the patient with Louie Couch PA-C and agree with the assessment and plan. 61-year-old female with acute diverticulitis and small pericolonic abscess She is overall improved, without any abdominal pain Trial clears today Continue IV antibiotics She continues to improve we can advance her to a low fiber diet tomorrow and possibly discharge her Will follow Subjective less pain, no further BMs, hot/cold flashes resolved Physical Exam Gastrointestinal (Abdomen): Inspection/Auscultation: abdomen not distended Percussion/Palpation: + abdomen tender (less) and abdomen soft Results & Data ([facility]) Vital Signs (Past 12 Hours) Vital Signs Temp Pulse Resp BP Pulse Ox O2 Del Method 10/27/22 09:43 37.7 C H 66 18 106/68 95 Room Air 10/27/22 08:38 36.9 C 69 18 94/55 L 93 Room Air PG Care Time/CCT Total # of Minutes Spent Total Time Spent with Patient: Total time spent is greater than 50% in coordination of care (as documented) at patient's floor/unit and/or counseling patient: Coding Level of Care Code 99536 Subseq Hosp Care Lvl 1 Diagnoses Diverticulitis of intestine with abscess K57.80
[2022-10-28] MEDS: NSS + 20MEQ KCL 20 MEQ/1,000 ML BAG IV SCH ×2 (03:54→15:34)
[2022-10-28] MEDS: PIPERACILLIN/TAZOBACTAM 3.375 GM in DEXTROSE 5% 100 ML IV SCH (07:50)
[2022-10-28] MEDS: HEPARIN SOD 5,000 UNIT/0.5 ML VIAL SQ SCH (07:53)
[2022-10-28] MEDS: ESCITALOPRAM OXALATE 20 MG TAB PO SCH (07:53)
[2022-10-28] MEDS: LURASIDONE HCL 40 MG TAB PO SCH (07:53)
[2022-10-28] MEDS: buPROPion SR 150 MG TABCR PO SCH (07:53)
[2022-10-28] MEDS: PANTOprazole 40 MG TAB PO SCH (07:53)
--- NOTE | 2022-10-28 08:04 | Hospitalist Progress Note ---
Date of Service October 28, 2022 Assessment & Plan (1) Diverticulitis: Plan: Patient has diverticulitis with intramural abscess. Continued on Zosyn therapy. Blood cultures have been obtained and are pending. (Prelim Neg) Patient status post colonoscopy and EGD October 20, 2021 by [facility] gastroenterology Dr. Grande, which showed small largemouth diverticula otherwise normal colon, patient had esophagus biopsied for Anderson's which was negative at that time. She continues on PPI Surgery evaluated patient and advanced her diet from ice chips to clear liquids for lunch today (2) GERD with esophagitis: Plan: As mentioned above the patient had negative Anderson's on previous evaluation in 2020 Continue PPI (3) Major depression, recurrent: Plan: Patient continues on Wellbutrin (only supposed be once a day) Latuda and Lexapro (4) Hyperlipidemia: Plan: Patient is on lovastatin which has been held Plan Discussed patient with Dr Metz who assisted in the management of this patient. DVT prevention will be heparin in case of surgical intervention will be required. Patient is a full code Of note patient is a [employer] in case there would be any need for concern of blood products Admission and Anticipated Discharge Date Admission Date: October 26, 2022 Subjective Patient seen this morning on rounds Review of Systems Constitutional: no fever, no chills and no weight loss Eyes: no blind spots, no diplopia and no spots in vision Respiratory: no cough, no chest congestion and no dyspnea Cardiovascular: no chest pain, no dyspnea and no syncope Gastrointestinal: + abdominal pain; no nausea, no vomiting and no dysphagia Genitourinary: no dysuria, no urinary frequency and no urinary hesitancy Integumentary: no rash, no lesions and no sores Physical Exam Constitutional: well developed, well nourished and cooperative ENMT: external ear and nose normal, oropharynx normal Neck: trachea midline, no thyromegaly Respiratory: normal respiratory effort, lungs clear to auscultation Cardiovascular: RRR, no murmur, no edema Gastrointestinal (Abdomen): normal bowel sounds, soft, nontender, no hepatosplenomegaly Psychiatric: A+Ox3, euthymic affect Results & Data Results & Data ([facility]) Vital Signs (Past 12 Hours) Vital Signs Temp Pulse Resp BP Pulse Ox O2 Del Method 10/28/22 07:58 36.6 C 59 L 18 128/78 94 Room Air 10/27/22 23:22 37.1 C 63 18 111/70 95 Room Air PG Care Time/CCT Total # of Minutes Spent Total Time Spent with Patient: Total time spent is greater than 50% in coordination of care (as documented) at patient's floor/unit and/or counseling patient: Coding Diagnoses Diverticulitis K57.92 GERD with esophagitis K21.00 Major depression, recurrent F33.9 Hyperlipidemia E78.5
[2022-10-28 08:10] LABS: Hematocrit (blood only) 36.3 % (34.1-44.9); Hemoglobin 11.8 g/dl (12.0-16.0); Mean Corpuscular Hemoglobin 28.3 pg (25.0-34.0); Mean Corpuscular Hgb Conc 32.5 g/dL (32.0-36.0); Mean Corpuscular Volume 87.1 fL (80.0-100.0); Mean Platelet Volume 9.5 fL (9.4-12.3); Platelet Count 302 K/uL (130-400); RDW Coefficient of Variation 14.2 % (11.5-14.5); RDW Standard Deviation 45.7 fL (36.4-46.3); Red Blood Count 4.17 M/uL (3.93-5.22); White Blood Count 5.65 K/ul (4.8-10.8)
[2022-10-28 08:51] LABS: BUN Creatinine Ratio 5.8 (10-20); Calcium 9.2 mg/dl (8.5-10.1); Creatinine Clr Calc Pharmacy 51.5 ml/min; Est GFR (African American) 83.3 ml/min; Est GFR (Non-African American) 71.9 ml/min; Potassium 3.5 mmol/L (3.5-5.1)
--- NOTE | 2022-10-28 10:07 | Surgery Progress Note ---
Date of Service October 28, 2022 Assessment & Plan (1) Diverticulitis of intestine with abscess: Plan: Patient is overall improving and without pyrexia or leukocytosis We can advance her to a low fiber diet and if she tolerates that she can be discharged later this afternoon She will require 2 weeks of p.o. antibiotics upon discharge She did have a colonoscopy about 1 year ago which was normal except for the diverticulosis seen in her sigmoid and descending colon Admission and Anticipated Discharge Date Admission Date: October 26, 2022 Subjective Patient seen and examined. Has very little abdominal pain at this point. Afebrile. She is been tolerating clear liquids without nausea and vomiting. She is been having some diarrhea. Review of Systems Constitutional: no fever and no chills Physical Exam Constitutional: WD/WN, vitals as above Gastrointestinal (Abdomen): Inspection/Auscultation: abdomen normal to inspection; abdomen not distended Soft, nontender, nondistended Results & Data ([facility]) Vital Signs (Past 12 Hours) Vital Signs Temp Pulse Resp BP Pulse Ox O2 Del Method 10/28/22 07:58 36.6 C 59 L 18 128/78 94 Room Air 10/27/22 23:22 37.1 C 63 18 111/70 95 Room Air PG Care Time/CCT Total # of Minutes Spent Total Time Spent with Patient: Total time spent is greater than 50% in coordination of care (as documented) at patient's floor/unit and/or counseling patient: Coding Level of Care Code 15469 Subseq Hosp Care Lvl 1 Diagnoses Diverticulitis of intestine with abscess K57.80
--- NOTE | 2022-10-28 14:58 | Discharge Summary ---
Date of Service October 28, 2022 Admission HPI Per Admitting Provider 61F referred by her PCP for evaluation after having outpatient CT scan for left lower quadrant abdominal pain that showed diverticulitis with intramural abscess 2.3x1.2 cm. Radiology notes not amenable to percutaneous drainage. Patient reports she has had ongoing pain for the past month that worsened over the past week with associated nausea and vomiting that admits she has a history of reflux as well. She is also had intermittent diarrhea. She denies fevers, chest pain, shortness of breath, urinary symptoms. She has not had any prior history of diverticulitis. IN the ER she was started on Zosyn COVID-negative Principal Diagnosis Diverticulitis with intramural abscess Discharge Exam Constitutional: well developed, well nourished and cooperative ENMT: external ear and nose normal, oropharynx normal Neck: trachea midline, no thyromegaly Respiratory: normal respiratory effort, lungs clear to auscultation Cardiovascular: RRR, no murmur, no edema Gastrointestinal (Abdomen): normal bowel sounds, soft, nontender, no hepatosplenomegaly Psychiatric: A+Ox3, euthymic affect Discharge Data Allergies Allergy/AdvReac Type Severity Reaction Status Date / Time No Known Allergies Allergy Unknown Verified 10/31/22 10:12 Consultations 10/26/22 12:59 ED Decision to Admit Stat 10/26/22 15:14 Consult General Surgery Routine Hospital Course (1) Diverticulitis: Patient has diverticulitis with intramural abscess. Was treated with IV Zosyn Blood cultures have been obtained and are pending. (Prelim Neg) Patient status post colonoscopy and EGD October 20, 2021 by [facility] gastroenterology Dr. Grande, which showed small largemouth diverticula otherwise normal colon, patient had esophagus biopsied for Anderson's which was negative at that time. She continues on PPI Surgery evaluated patient and advanced her diet from ice chips to clear liquids for lunch yesterday and then to a low fiber diet today. Patient tolerated the low fiber lunch earlier and is asking to be discharged to home. Patient will be discharged home on 12 days of Augmentin 875mg BID (2) GERD with esophagitis: Continued on PPI (3) Major depression, recurrent: Continued on Wellbutrin, Latuda and Lexapro (4) Hyperlipidemia: Will resume Lovastatin upon discharge Total Time Total Time Spent Total Time Spent (In Minutes): 40 Discharge Plan Discharge Items Patient Disposition: Home - Self-Care Reason For Visit: DIVERTICULITIS WITH INTRAMRAL ABSCESS Discharge Diagnosis: Diverticulitis with intramural abscess Condition on Discharge: Fair Activity: Resume your previous activity Lifting: Gradually increase as tolerated Exercise/Sports: Gradually increase as tolerated Driving/Machine Use: Resume 1 day after discharge Weightbearing: Full weightbearing Non-emergency contact: Primary Care Provider Call non-emergency contact if: your symptoms worsen, your pain is worsening and your temperature is above 101.5 Follow-up/Referrals: Brendon Garay DO [Primary Care Provider] - 11/04/22 1:30 pm (With Karri MARQUEZ) Diet: Low Fiber Diet Comment: Continue low fiber diet x 2 weeks and then f/up with PCP to advance fiber Addtl Attending Provider Instructions: You were admitted with abdominal pain and found to have diverticulitis with an abscess. Surgery evaluated you and recommended to continue the IV antibiotics and slowly advanced your diet. You were able to start a low fiber diet today and tolerated this. You will need to continue a low fiber diet for the next 2 weeks. You will need to follow up with your primary care physician in a few weeks and can discuss increasing fiber back into your diet after completing the antibiotics if your doctor feels the diverticulitis has completely resolved. You will be given a Rx for Augmentin 875 mg one pill two times per day (24 Pills - this will cmplete a total of 14 day treatment for the diverticulitis) to start your first dose tomorrow morning at 6 AM. You had one dose of Augmentin prior to being discharged. Recommend to add Probiotics while you are taking the Augmentin Recommend also to follow up with your regular line installer. Sometimes Gastroenterology will recommend a repeat Colonoscopy 6 weeks after resolution of the diverticulitis. Pending Studies at Discharge: No Stand-Alone Forms: My [facility] [employer] Medications and DC Order Prescriptions: New amoxicillin-pot clavulanate 875-125 mg tablet 1 tab PO Q12H Qty: 24 0RF Rx Instructions: to start first dose 10/29/22 at 06:00 Continued Latuda 20 mg tablet 20 mg PO DAILY Qty: 90 0RF bupropion HCl [Wellbutrin SR] 150 mg tablet sustained-release 12 hr 300 mg PO DAILY PRN (Reason: depression) Qty: 180 0RF omeprazole 20 mg capsule,delayed release(DR/EC) 20 mg PO BID Qty: 180 1RF garlic 500 mg capsule 500 mg PO DAILY lovastatin 40 mg tablet 40 mg PO HS Qty: 90 0RF multivitamin tablet 1 tab PO DAILY Qty: 90 3RF clotrimazole-betamethasone 1-0.05 % cream 1 appln topical BID Qty: 45 3RF escitalopram oxalate 20 mg tablet 20 mg PO QPM No Action diclofenac sodium [Voltaren Arthritis Pain] 1 % gel 2 g topical QID PRN (Reason: Pain) Qty: 100 0RF Rx Instructions: apply to single elbow, wrist or hand; for hand includes palm/fingers/back of hand hydrocortisone [Anusol-HC] 2.5 % cream with perineal applicator 1 applic [place] DAILY PRN (Reason: hemorrhoids) Qty: 30 0RF Discharge Orders: Discharge Order (Routine); Ordered 10/28/22 Ordered By: Vanessa Warren/Other Patient Handouts: Low-Fiber Diet Admission Data Admit Date/Time: 10/26/22 12:44 Attending Provider: Mike Metz Admit Provider: El Jules Primary Care Provider: Brendon Garay Other Providers: El Jules ; Louie Couch Jr Other Interventions: Discharge Summary Assessment (RN) Last Done: 10/28/22 15:17 Supervising Physician Co-Signing Physician Notes Patient seen and examined at bedside. During face to face encounter, I obtained a history of hospital stay, and a breif physical exam. I reviewed above note and agree with it. I discussed discharge plan with JOSEPH Zaidi and patient. Patient will be discharged on antibiotics to complete treatment for diverticulitis. Coding Level of Care Code Established Pt D/C DAY MANAGEMENT >30 MINS Patient Type Established Medical Decision Making Moderate Complexity Diagnoses Diverticulitis K57.92 GERD with esophagitis K21.00 Major depression, recurrent F33.9 Hyperlipidemia E78.5 Time Spent (min) 35
[2022-10-28] MEDS ORDERED: AMOXICILLIN/CLAVULANATE 875 MG TAB PO ONE (15:30)
[2022-10-30] MEDS ORDERED: ROCURONIUM BROMIDE 10 MG/ML 5 ML VIAL IV ONE (12:42)
== END 2022-10-28 16:11 | disposition home or self-care (01) | DRG 392 ==
LOC: ED 10:40 → EDINP 12:44 → SUATTDRO 12:44 → 3W 18:53 → 3N 10-27 04:22

== ENCOUNTER 2025-07-14 15:55 | Inpatient (IN) ==
[2025-07-14 16:49] LABS: Hematocrit (blood only) 36.2 % (37.0-47.0); Hemoglobin 11.9 g/dl (12.0-16.0); Immature Granulocytes # (auto) 0.03 K/uL (0.01-0.20); Immature Granulocytes % (auto) 0.4 %; Mean Corpuscular Hemoglobin 26.3 pg (25.0-34.0); Mean Corpuscular Volume 80.1 fL (80.0-100.0); Platelet Count 340 K/uL (130-400); RDW Standard Deviation 47.8 fL (36.4-46.3); Red Blood Count 4.52 M/uL (4.20-5.40); White Blood Count 8.56 K/ul (4.8-10.8)
--- NOTE | 2025-07-14 17:10 | Emergency Department Note ---
Impression & Plan Perforation of sigmoid colon due to diverticulitis, Colonic diverticular abscess ED Provider Note HISTORY OF PRESENT ILLNESS: Patient is a 64-year-old female presenting with abdominal pain. Patient reports she has been having vague right lower quadrant abdominal pain for "a number of months." However, she states that her pain has been significantly worse over the last 5 days. Reports that when she eats anything, she starts having pain in her abdomen and then she has a bowel movement and her pain improves. She has an abdominal surgical history significant for a cholecystectomy. Denies any fevers. Denies any nausea or vomiting. She does report intermittent diarrhea over the last few months. Denies any dysuria or hematuria. She rates the pain a 4 out of 10 currently, but states that it does become a 10 out of 10 at its worst. She describes the pain as crampy and intermittently sharp. ROS: as above PHYSICAL EXAM: Constitutional: Patient appears in no acute distress. HENT: Head: Normocephalic and atraumatic. Eyes: EOMI, PERRL Mouth/Throat: Mucous membranes moist. Neck: Trachea midline. Neck supple. Cardiovascular: RRR, No murmurs, rubs or gallops. Intact distal pulses. Pulmonary/Chest: No respiratory distress. Breath sounds clear and equal bilaterally. No wheezes or rales. Abdominal: Abdomen soft, no rebound or guarding. RLQ TTP Musculoskeletal: No edema, tenderness or deformity noted. Skin: Warm and dry. No rash, erythema, pallor or cyanosis Psychiatric: Appropriate mood and affect for situation. Neurological: Alert and keenly responsive. CN II-XII grossly intact, moving all extremities equally and fully. MDM: - Vitals signs stable - History obtained via patient. History as above. - Chronic conditions affecting care: GERD; depression - Differential diagnoses include, but are not limited to: Aortic aneurysm; diverticulitis; ischemic colitis; ureteral calculi; UTI; appendicitis - Order placed for continuous cardiac monitoring. At this time, monitor showed rate of 67 bpm with normal sinus rhythm, per my interpretation. - External medical records reviewed. Wellness visit note dated 02/14/2025 was reviewed. Patient was seen for a wellness exam with her . Her medications were refilled and MRI brain without contrast was ordered for workup of diplopia and headaches - Laboratory workup interpreted by myself showed normal WBC; normal PT/INR; stable electrolytes; transaminitis (AST 48; ALT 58); normal lipase; normal total bilirubin - CT abdomen/pelvis with IV contrast showed sigmoid diverticulitis with a focal area of contained perforation and incompletely formed fluid, consistent with a phlegmon and possible early abscess formation measuring 2.8 cm. - Discussed case with general surgeon on-call, Dr. Mcclure, at 18:15. He reports no emergent surgical intervention needed at this time. Recommended admission to medicine with IV antibiotics. Will see as consult on rounds in the morning. - IV zosyn ordered. - Discussion was had with case maker about patient's case and need for admission - Hospitalist consulted for admission - Patient admitted to [facility] service for further evaluation and management. ASSESSMENT AND PLAN: Diagnosis: Sigmoid diverticulitis with abscess; sigmoid perforation Plan: Admit Past Med/Surg History Problem List (Updated 07/14/25 @ 18:46 by Sondra Womack MD) Colonic diverticular abscess (Acute) Perforation of sigmoid colon due to diverticulitis (Acute) Medicare annual wellness visit, initial Persistent headaches Osteoporosis Hoarseness of voice Hyperlipidemia Esophagitis Postmenopause Diplopia Barretts esophagus Anxiety Panic attacks Major depression, recurrent Internal hemorrhoids (Chronic) Gastritis (Chronic) Medical History (Updated 07/14/25 @ 18:46 by Sondra Womack MD) Sinusitis Cough Thyroid pain Rib pain on right side Encounter for pre-operative examination Diverticulitis of intestine with abscess Pre-procedural laboratory examination Nausea and vomiting Right lower quadrant pain Left lower quadrant abdominal pain Well adult health check Weight gain Diverticulosis Abdominal pain Pap smear for cervical cancer screening Nevus of cheek Screening mammogram, encounter for Rectal leakage Dysphagia Dyspnea Colon cancer screening History of COVID-19 03/01/23, home test, not hosp; cough, "full of mucous">resolved w/exception of lingering cough as of 03/16/23---spoke with pt and 03/21/23 pt is currently on antibiotic/tessalon perles for cough (states cough is slowing improving--pt aware to notify PAT if still experiencing cough 03/31 prior to sx) Dyspnea denies Dysphagia resolved Arthritis Nausea and vomiting after administration of anesthetic agent Panic attacks Diplopia present Anderson esophagus Anxiety Diverticulitis recent in Oct 2022 at [facility], resolved per pt GERD with esophagitis Surgical History Hx of left cataract extraction History of cholecystectomy History of esophagogastroduodenoscopy (EGD) History of stapedectomy bilat H/O arthroscopic knee surgery right History of hip surgery bilat hip replacements History of colonoscopy Family History Mother Stroke CHF (congestive heart failure) Brother Rheumatic fever Social History Smoking Status: Never smoker Second Hand Exposure: No; Do You Dip or Chew Tobacco: No; Hx Alcohol Use: Yes Alcohol type: wine Hx Substance Use: No Preferred Language: Irish Communication Ability: Effective Visual Impairment: Limited Hearing Ability: Hard of Hearing [employer] Required: No Beliefs That Will Affect Care: Quaker Quaker Beliefs: Larry Witness, no blood products marital status: Current Living Situation: Spouse current occupational status: unemployed Feels Safe at Home: Yes Childhood Exposure to Second-Hand Smoke: Yes Dental Care, Regularly: Yes Physical Activity Frequency: Does not Exercise Seatbelt Use: always Sunscreen Use: Yes Assistive Devices: Glasses Allergies Allergies Allergy/AdvReac Type Severity Reaction Status Date / Time No Known Drug Allergies Allergy Verified 05/02/25 12:50 Home Meds Home Medications Medication Instructions Recorded Confirmed calcium carbonate 500 mg PO DAILY 02/27/23 07/14/25 cholecalciferol (vitamin D3) 50 50 mcg PO DAILY 02/27/23 07/14/25 mcg (2,000 unit) capsule (Vitamin D3) ibuprofen 200 mg tablet (Advil) 200 mg PO Q6H PRN Pain 02/27/23 07/14/25 lactobacillus combo no.11 15 1 cap PO DAILY 02/27/23 07/14/25 billion cell sprinkle capsule (Probiotic) moringa 750 mg PO DAILY 08/26/24 07/14/25 polyethylene glycol 3350 17 17 g PO DAILY PRN Constipation 08/26/24 07/14/25 gram/dose oral powder (Miralax) psyllium seed (sugar) oral powder 1 tbsp PO DAILY PRN Constipation 08/26/24 07/14/25 (Metamucil (sugar) oral powder) latanoprost 0.005 % eye drops 1 drp ophthalmic (eye) HS 05/02/25 07/14/25 clotrimazole-betamethasone 1 1 appln topical BID PRN Other 07/14/25 07/14/25 %-0.05 % topical cream magnesium 1 tab PO HS PRN Other 07/14/25 07/14/25 Previous Rx's Medication Instructions Recorded multivitamin 1 tab PO DAILY #90 tabs 07/01/19 diclofenac sodium 1 % topical gel 2 g topical QID PRN Pain #100 grams 11/16/23 (Voltaren Arthritis Pain) hydrocortisone 2.5 % topical cream 1 applic NV DAILY PRN hemorrhoids 02/24/25 with perineal applicator #30 grams (Anusol-HC) lovastatin 40 mg tablet 40 mg PO HS #90 tabs 02/24/25 omeprazole 20 mg capsule,delayed 20 mg PO BID #180 caps 02/24/25 release bupropion HCl 150 mg tablet,12 hr 300 mg (2 x 150 mg) PO DAILY #180 04/30/25 sustained-release (Wellbutrin SR) ea escitalopram oxalate 20 mg tablet 20 mg PO QAM #90 tabs 04/30/25 ipratropium bromide 42 mcg (0.06 2 spray intranasal QID #15 mL 05/02/25 %) nasal spray Results & Data (ED) Vital Signs Vital Signs - 24 hr 07/14/25 16:05 07/14/25 16:30 07/14/25 16:34 Temperature 36.8 C Temperature Source Temporal Artery Scan Pulse Rate 82 73 Pulse Rate [Apical] 70 Pulse Rhythm [Apical] Respiratory Rate 16 20 Respiratory Effort / Characteristics Non-Labored Spontaneous Non-Labored Respiratory Depth Normal Normal Respiratory Pattern Regular Blood Pressure 128/85 Blood Pressure [Right Arm] 125/81 Blood Pressure Mean 99 Blood Pressure Mean [Right Arm] 95 Pulse Oximetry 95 96 Oxygen Delivery Method Room Air Room Air Sepsis Recent Fever Within 48 Hours No Sepsis New/Unexplained Change in Mental Status N/A Sepsis Action Taken by Nursing No Action Required 07/14/25 16:34 07/14/25 18:06 Temperature Temperature Source Pulse Rate Pulse Rate [Apical] 67 Pulse Rhythm [Apical] Regular Respiratory Rate 14 Respiratory Effort / Characteristics Non-Labored Spontaneous Respiratory Depth Normal Respiratory Pattern Regular Blood Pressure Blood Pressure [Right Arm] 122/71 Blood Pressure Mean Blood Pressure Mean [Right Arm] 88 Pulse Oximetry 95 92 Oxygen Delivery Method Room Air Room Air Sepsis Recent Fever Within 48 Hours Sepsis New/Unexplained Change in Mental Status Sepsis Action Taken by Nursing Laboratory Data 07/14/25 16:30 07/14/25 16:30 Lab Results 07/14/25 Range/Units 16:30 WBC 8.56 (4.8-10.8) K/ul RBC 4.52 (4.20-5.40) M/uL Hgb 11.9 L (12.0-16.0) g/dl Hct 36.2 L (37.0-47.0) % MCV 80.1 (80.0-100.0) fL MCH 26.3 (25.0-34.0) pg MCHC 32.9 (32.0-36.0) g/dL RDW Std Deviation 47.8 H (36.4-46.3) fL RDW Coeff of Patrica 16.4 H (11.5-14.5) % Plt Count 340 (130-400) K/uL MPV 9.5 (9.4-12.4) fL Immature Gran % (Auto) 0.4 % Neut % (Auto) 73.4 % Lymph % (Auto) 15.8 % Adams % (Auto) 9.7 % Eos % (Auto) 0.1 % Baso % (Auto) 0.6 % Neut # (Auto) 6.29 (1.40-6.50) K/uL Lymph # (Auto) 1.35 (1.20-3.40) K/uL Adams # (Auto) 0.83 H (0.11-0.59) K/uL Eos # (Auto) 0.01 (0.00-0.50) K/uL Baso # (Auto) 0.05 (0.00-0.20) K/uL Immature Gran # (Auto) 0.03 (0.01-0.20) K/uL PT 10.7 (9.0-12.0) Seconds INR 1.0 (0.9-1.1) Sodium 141 (136-145) mmol/L Potassium 4.0 (3.5-5.1) mmol/L Chloride 106 (98-107) mmol/L Carbon Dioxide 28 (21-32) mmol/L Anion Gap 7 (3-11) BUN 12 (6-23) mg/dl Creatinine 1.01 (0.6-1.2) mg/dl Est Cr Clr Drug Dosing 41.0 ml/min eGFR 61.40 BUN/Creatinine Ratio 11.9 (10-20) Glucose 105 H (70-99(Fasting)) mg/dl Lactate 0.8 (0.4-2.0) mmol/L Calcium 9.9 (8.6-10.3) mg/dl Total Bilirubin 0.4 (0.2-1.0) mg/dl AST 48 H (13-39) U/L ALT 58 H (7-52) U/L Alkaline Phosphatase 266 H (34-104) U/L Total Protein 7.2 (6.0-8.3) gm/dl Albumin 3.8 (3.4-5.0) gm/dl Globulin 3.4 (2.5-4.0) gm/dl Albumin/Globulin Ratio 1.1 (0.9-2) Lipase 11 (11-82) U/L Administered Medications Discontinued Medications Piperacillin Sod/Tazobactam Sod (Zosyn) 4.5 gm in 100 mls @ 200 mls/hr IV NOW ONE; Protocol Stop: 07/14/25 18:43 Last Admin: 07/14/25 18:30 Dose: 200 mls/hr Documented By: FG Ioversol (Optiray 320 100ml) 93 ml IV ONCE ONE Stop: 07/14/25 17:37 Last Admin: 07/14/25 17:36 Dose: 93 ml Documented By: [facility] Imaging Data Radiologist's Impression: Abdomen/Pelvis CT 07/14/25 16:18 EXAMINATION: CT of the abdomen and pelvis performed after the administration of IV contrast TECHNIQUE: Helical CT images from the lung bases through the symphysis pubis were obtained with contrast. Coronal and sagittal reformatted images were generated at a workstation for further assessment. Dose reduction techniques were achieved by using automatic exposure control and/or adjustment of mA and/or kV according to patient size and/or use of iterative reconstruction technique. COMPARISON: None HISTORY: Abdominal pain FINDINGS: Lower chest: No consolidation. No pleural effusion or pneumothorax. Liver: No suspicious liver lesions. Portal veins appear patent. Gallbladder: Cholecystectomy. Spleen: Normal size. Pancreas: No suspicious pancreatic lesions. The pancreatic duct is not dilated. Adrenal glands: No adrenal nodules. Kidneys: No hydronephrosis or obstructing renal stones. Bladder / Pelvic organs: Unremarkable. Bowel: No bowel obstruction. There is an area of wall thickening and inflammatory fat stranding involving the sigmoid colon. Superior to the sigmoid colon, is an ill-defined and partially formed region of fluid, with scattered areas of some thin rim enhancement and also which contains internal air, measuring 2.8 x 2.5 cm. The appendix is unremarkable. Hiatal hernia. Lymph nodes: No retroperitoneal, mesenteric, or pelvic lymphadenopathy. Peritoneum / Retroperitoneum: There is no connor free air in the peritoneum. There is an area of contained perforation near the sigmoid colon, as above. Vessels: No infrarenal aortic aneurysm. Bones and soft tissues: No suspicious lesion in the bones. Bilateral total hip arthroplasty. IMPRESSION: Sigmoid diverticulitis, with a focal area of contained perforation, and incompletely formed fluid, consistent with phlegmon and possible early abscess formation, measuring 2.8 cm in diameter. Electronically signed by Keven Huitron 07-14-2025 5:57 PM Discharge Plan Visit Data Chief Complaint: Abdominal Pain Stated Complaint: ABD PAIN ED Provider: Sondra Womack Discharge Problem: Perforation of sigmoid colon due to diverticulitis, Colonic diverticular abscess Condition: Fair Forms Stand Alone Forms: My [facility] Prescriptions Prescriptions: No Action diclofenac sodium [Voltaren Arthritis Pain] 1 % gel 2 g topical QID PRN (Reason: Pain) Qty: 100 0RF Rx Instructions: apply to single elbow, wrist or hand; for hand includes palm/fingers/back of hand escitalopram oxalate 20 mg tablet 20 mg PO QAM Qty: 90 0RF bupropion HCl [Wellbutrin SR] 150 mg tablet sustained-release 12 hr 300 mg PO DAILY Qty: 180 0RF moringa 750 mg PO DAILY polyethylene glycol 3350 [Miralax] 17 gram/dose powder 17 g PO DAILY PRN (Reason: Constipation) Metamucil (sugar) Powder 1 tbsp PO DAILY PRN (Reason: Constipation) multivitamin tablet 1 tab PO DAILY Qty: 90 3RF latanoprost 0.005 % drops 1 drp ophthalmic (eye) HS ipratropium bromide 42 mcg (0.06 %) spray,non-aerosol 2 spray intranasal QID Qty: 15 6RF Rx Instructions: administer into each nostril lovastatin 40 mg tablet 40 mg PO HS Qty: 90 3RF omeprazole 20 mg capsule,delayed release(DR/EC) 20 mg PO BID Qty: 180 3RF Hold Instructions: order change hydrocortisone [Anusol-HC] 2.5 % cream with perineal applicator 1 applic NV DAILY PRN (Reason: hemorrhoids) Qty: 30 0RF calcium carbonate 500 mg calcium (1,250 mg) Tablet 500 mg PO DAILY ibuprofen [Advil] 200 mg Tablet 200 mg PO Q6H PRN (Reason: Pain) cholecalciferol (vitamin D3) [Vitamin D3] 50 mcg (2,000 unit) Capsule 50 mcg PO DAILY Probiotic 15 billion cell Capsule, Sprinkle 1 cap PO DAILY Rx Instructions: do not crush/chew/cut; swallow whole OR may open and sprinkle in cold drink/food magnesium 1 tab PO HS PRN (Reason: Other) clotrimazole-betamethasone 1-0.05 % cream 1 appln topical BID PRN (Reason: Other) Referrals Referrals: Brendon Garay DO [Primary Care Provider] -
[2025-07-14 17:17] LABS: Alanine Aminotransferase 58.0 U/L (7-52); Albumin Globulin Ratio 1.1 (0.9-2); Alkaline Phosphatase 266.0 U/L (34-104); Anion Gap 7.0 (3-11); Bilirubin,Total 0.4 mg/dl (0.2-1.0); Blood Urea Nitrogen 12.0 mg/dl (6-23); Calcium 9.9 mg/dl (8.6-10.3); Carbon Dioxide 28.0 mmol/L (21-32); Chloride 106.0 mmol/L (98-107); Creatinine Clr Calc Pharmacy 41.0 ml/min; Globulin 3.4 gm/dl (2.5-4.0); Glucose 105.0 mg/dl (70-99(Fasting)); Lipase 11.0 U/L (11-82); Potassium 4.0 mmol/L (3.5-5.1); Sodium 141.0 mmol/L (136-145); Total Protein 7.2 gm/dl (6.0-8.3)
[2025-07-14 17:21] LABS: INR 1.0 (0.9-1.1); Prothrombin Time 10.7 Seconds (9.0-12.0)
[2025-07-14] MEDS: OPTIRAY 320 100ml IV ONE (17:36)
--- NOTE | 2025-07-14 17:57 | CT Scan Report ---
EXAMINATION: CT of the abdomen and pelvis performed after the administration of IV contrast TECHNIQUE: Helical CT images from the lung bases through the symphysis pubis were obtained with contrast. Coronal and sagittal reformatted images were generated at a workstation for further assessment. Dose reduction techniques were achieved by using automatic exposure control and/or adjustment of mA and/or kV according to patient size and/or use of iterative reconstruction technique. COMPARISON: None HISTORY: Abdominal pain FINDINGS: Lower chest: No consolidation. No pleural effusion or pneumothorax. Liver: No suspicious liver lesions. Portal veins appear patent. Gallbladder: Cholecystectomy. Spleen: Normal size. Pancreas: No suspicious pancreatic lesions. The pancreatic duct is not dilated. Adrenal glands: No adrenal nodules. Kidneys: No hydronephrosis or obstructing renal stones. Bladder / Pelvic organs: Unremarkable. Bowel: No bowel obstruction. There is an area of wall thickening and inflammatory fat stranding involving the sigmoid colon. Superior to the sigmoid colon, is an ill-defined and partially formed region of fluid, with scattered areas of some thin rim enhancement and also which contains internal air, measuring 2.8 x 2.5 cm. The appendix is unremarkable. Hiatal hernia. Lymph nodes: No retroperitoneal, mesenteric, or pelvic lymphadenopathy. Peritoneum / Retroperitoneum: There is no connor free air in the peritoneum. There is an area of contained perforation near the sigmoid colon, as above. Vessels: No infrarenal aortic aneurysm. Bones and soft tissues: No suspicious lesion in the bones. Bilateral total hip arthroplasty. IMPRESSION: Sigmoid diverticulitis, with a focal area of contained perforation, and incompletely formed fluid, consistent with phlegmon and possible early abscess formation, measuring 2.8 cm in diameter. Electronically signed by Keven Huitron 07-14-2025 5:57 PM
[2025-07-14] MEDS: PIPERACILLIN/TAZOBACTAM 4.5 GM/100 ML BAG IV ONE (18:30)
[2025-07-14] MEDS ORDERED: POLYETHYLENE (MIRALAX) 17 GM PACK PO PRN (20:12)
[2025-07-14] MEDS ORDERED: HYDROCORTISONE HC 2.5% CRM 30GM TUBE EXT PRN (20:12)
[2025-07-14] MEDS ORDERED: CLOTRIMAZOLE/BETAMETHASONE CR 15 GM TUBE EXT PRN (20:12)
[2025-07-14 21:03] LABS: Appearance Urine Clear (Clear); Glucose Urine UA Negative (Negative)
--- NOTE | 2025-07-14 21:08 | History & Physical Report ---
Date of Service July 14, 2025 Assessment & Plan (1) Sigmoid diverticulitis: (2) Transaminitis: (3) Major depression, recurrent: Plan Pt is a 64 yo female presenting to the ED with abdominal pain. PMHx includes diverticulitis of intestine with abscess, GERD with Esophagitis, Gastritis, Hyperlipidemia, Cholecystectomy, Major Depression - recurrent, Panic Attacks, Anxiety. Patient is admitted for diverticulitis to MED/SURG. # Acute Complicated Diverticulitis -Pt presents with abdominal pain for the last 5 days. Pain is described as a sharp 10/10 at moments, with shifts to dull achy pain at a 4/10. Pain on palpation is most sensitive in the RLQ. CT Abdomen -- Sigmoid diverticulitis, with a focal area of contained perforation, and incompletely formed fluid, consistent with phlegmon and possible early abscess formation, measuring 2.8 cm in diameter. -SIRS criteria negative, no systematic signs of infection -CMP, CBC, CRP ordered for AMLabs -Zosyn, 4.5 gm in 100 mls -Toradol 15 mg,h prn -Zofran 4 mg, prn -Miralax, 17 gm prn # Transaminitis -Elevated compared to baseline in January AST 16 -- > 48 (today) ALT 13 --> 58 (today) -reevaluate tomorrow after AM Labs # Hyperlipidemia -Hold Statin until AM labs come out -- transaminitis # Major Depression, Recurrent -Continue Bupropion 300 mg and Escitalopram 20 mg Code: Full DVT prophylaxis: Not at this time Dispo: Med/Surg History of Present Illness Primary Care Provider: Brendon Garay DO Pt is a 64 yo female presenting to the ED with abdominal pain. PMHx includes diverticulitis of intestine with abscess, GERD with Esophagitis, Gastritis, Hyperlipidemia, Cholecystectomy, Major Depression - recurrent, Panic Attacks, Anxiety. Pt reports vague right lower quadrant abdominal pain for "a number of months." However, she states that her pain has been significantly worse over the last 5 days. Reports that when she eats anything, she starts having pain 30 minutes after in her abdomen and then she has a bowel movement and her pain improves. She rates the pain a 4 out of 10 currently, but states that it does become a 10 out of 10 at its worst. She describes the pain as crampy and intermittently sharp. The pain does not radiate. On physical exam in the ED, pt is AOx3, inspection shows a flat abdomen in the supine position with no markings or irregularities. On palpation, pt has general pain in the abdomen, with specific pain on light touch in the RLQ. Peritonitis signs are negative. On auscultation of the gut, bowel sounds heard. Cardiac auscultation sounds S1 & S2 with no murmurs, rubs or gallops. On respiratory auscultation, vesicular sounds heard throughout. Pt denies any fevers, muscle aches or myalgia. Further, pt denies any nausea or vomiting. She does report intermittent diarrhea over the last few months. Dysuria or hematuria are negative. Patient is admitted for diverticulitis to MED/SURG. Allergies Allergy/AdvReac Type Severity Reaction Status Date / Time No Known Drug Allergies Allergy Verified 05/02/25 12:50 Home Medications Medication Instructions Recorded Confirmed Type multivitamin 1 tab PO DAILY #90 tabs 07/01/19 07/14/25 Rx calcium carbonate 500 mg PO DAILY 02/27/23 07/14/25 History cholecalciferol (vitamin D3) 50 50 mcg PO DAILY 02/27/23 07/14/25 History mcg (2,000 unit) capsule (Vitamin D3) ibuprofen 200 mg tablet (Advil) 200 mg PO Q6H PRN Pain 02/27/23 07/14/25 History lactobacillus combo no.11 15 1 cap PO DAILY 02/27/23 07/14/25 History billion cell sprinkle capsule (Probiotic) diclofenac sodium 1 % topical gel 2 g topical QID PRN Pain #100 grams 11/16/23 07/14/25 Rx (Voltaren Arthritis Pain) moringa 750 mg PO DAILY 08/26/24 07/14/25 History polyethylene glycol 3350 17 17 g PO DAILY PRN Constipation 08/26/24 07/14/25 History gram/dose oral powder (Miralax) psyllium seed (sugar) oral powder 1 tbsp PO DAILY PRN Constipation 08/26/24 07/14/25 History (Metamucil (sugar) oral powder) hydrocortisone 2.5 % topical cream 1 applic [place] DAILY PRN hemorrhoids 02/24/25 07/14/25 Rx with perineal applicator #30 grams (Anusol-HC) lovastatin 40 mg tablet 40 mg PO HS #90 tabs 02/24/25 07/14/25 Rx omeprazole 20 mg capsule,delayed 20 mg PO BID #180 caps 02/24/25 07/14/25 Rx release bupropion HCl 150 mg tablet,12 hr 300 mg (2 x 150 mg) PO DAILY #180 04/30/25 07/14/25 Rx sustained-release (Wellbutrin SR) ea escitalopram oxalate 20 mg tablet 20 mg PO QAM #90 tabs 04/30/25 07/14/25 Rx ipratropium bromide 42 mcg (0.06 2 spray intranasal QID #15 mL 05/02/25 07/14/25 Rx %) nasal spray latanoprost 0.005 % eye drops 1 drp ophthalmic (eye) HS 05/02/25 07/14/25 History clotrimazole-betamethasone 1 1 appln topical BID PRN Other 07/14/25 07/14/25 History %-0.05 % topical cream magnesium 1 tab PO HS PRN Other 07/14/25 07/14/25 History Past Med/Surg History Problem List (Updated 07/14/25 @ 21:59 by Nirmala Bowman MD) Major depression, recurrent Transaminitis Sigmoid diverticulitis Colonic diverticular abscess (Acute) Perforation of sigmoid colon due to diverticulitis (Acute) Medicare annual wellness visit, initial Persistent headaches Osteoporosis Hoarseness of voice Hyperlipidemia Esophagitis Postmenopause Diplopia Barretts esophagus Anxiety Panic attacks Major depression, recurrent Internal hemorrhoids (Chronic) Gastritis (Chronic) Medical History (Updated 07/14/25 @ 21:59 by Nirmala Bowman MD) Sinusitis Cough Thyroid pain Rib pain on right side Encounter for pre-operative examination Diverticulitis of intestine with abscess Pre-procedural laboratory examination Nausea and vomiting Right lower quadrant pain Left lower quadrant abdominal pain Well adult health check Weight gain Diverticulosis Abdominal pain Pap smear for cervical cancer screening Nevus of cheek Screening mammogram, encounter for Rectal leakage Dysphagia Dyspnea Colon cancer screening History of COVID-19 03/01/23, home test, not hosp; cough, "full of mucous">resolved w/exception of lingering cough as of 03/16/23---spoke with pt and 03/21/23 pt is currently on antibiotic/tessalon perles for cough (states cough is slowing improving--pt aware to notify PAT if still experiencing cough 03/31 prior to sx) Dyspnea denies Dysphagia resolved Arthritis Nausea and vomiting after administration of anesthetic agent Panic attacks Diplopia present Anderson esophagus Anxiety Diverticulitis recent in Oct 2022 at [facility], resolved per pt GERD with esophagitis Surgical History Hx of left cataract extraction History of cholecystectomy History of esophagogastroduodenoscopy (EGD) History of stapedectomy bilat H/O arthroscopic knee surgery right History of hip surgery bilat hip replacements History of colonoscopy Family History Mother Stroke CHF (congestive heart failure) Brother Rheumatic fever Social History Smoking Status: Never smoker Tobacco Type: Declines Second Hand Exposure: No; Do You Dip or Chew Tobacco: No; Hx Alcohol Use: Yes Alcohol type: wine Hx Substance Use: No Preferred Language: Thai Communication Ability: Effective Visual Impairment: Limited Hearing Ability: Hard of Hearing Environmental Field Professional Required: No Beliefs That Will Affect Care: Quaker Quaker Beliefs: Jew no blood products marital status: Current Living Situation: Spouse current occupational status: unemployed Feels Safe at Home: Yes Childhood Exposure to Second-Hand Smoke: Yes Dental Care, Regularly: Yes Physical Activity Frequency: Does not Exercise Seatbelt Use: always Sunscreen Use: Yes Assistive Devices: Glasses Results & Data Results & Data Vital Signs (Past 12 Hours) Vital Signs Temp Pulse Pulse Resp BP BP Pulse Ox 07/14/25 20:32 76 07/14/25 20:00 66 18 115/68 95 07/14/25 18:06 67 14 122/71 92 07/14/25 16:34 95 07/14/25 16:34 70 20 125/81 96 07/14/25 16:30 73 07/14/25 16:05 36.8 C 82 16 128/85 95 O2 Del Method 07/14/25 20:32 07/14/25 20:00 Room Air 07/14/25 18:06 Room Air 07/14/25 16:34 Room Air 07/14/25 16:34 Room Air 07/14/25 16:30 07/14/25 16:05 Room Air Code Status & VTE Plan VTE Prophylaxis Plan VTE Prophylaxis will be ordered: Yes Supervising Physician Co-Signing Physician Notes Patient seen and examined, chart reviewed, case discussed with Dr. Bowman and I agree with the assessment and plan as above. In brief, patient is a 64y female with history of diverticulitis, GERD, HLP presenting with abdominal pain intermittent for the last 5 days. Pain 4/10 - 10/10, sharp in nature. On physical exam she is afebrile, HD stable, NAD, resting comfortably MMM, Neck supple +S1/S2, regular, no m/r/g Lungs CTA Abd soft, ND, tenderness in the RLQ with some voluntary guarding, no rebound Ext - warm, well perfused Labs and images reviewed CT with acute diverticulitis with contained perforation, possible early abscess formation Assessment/plan: -Admit to medical -Toradol and Tylenol PRN pain -Zofran PRN nausea -Zosyn -Repeat LFTs in AM -Remainder as above
--- NOTE | 2025-07-14 21:10 | Billing Data ---
Date of Service July 14, 2025 Coding Level of Care Code 91302 INT INP/OBS CARE
[2025-07-14] MEDS ORDERED: ACETAMINOPHEN 325 MG TAB PO PRN (22:29)
[2025-07-14] MEDS ORDERED: MELATONIN 3 MG TAB PO PRN (22:29)
[2025-07-14] MEDS ORDERED: ONDANSETRON INJ 2 MG/ML 2 ML VIAL IV PRN (22:29)
[2025-07-14] MEDS ORDERED: ALUMINUM/MAGNESIUM SUSP 30 ML UDC PO PRN (22:29)
[2025-07-14] MEDS ORDERED: MAGNESIUM HYDROXIDE SUSP 30 ML UDC PO PRN (22:29)
[2025-07-15] MEDS: PIPERACILLIN/TAZOBACTAM 4.5 GM/100 ML BAG IV SCH (00:16)
[2025-07-15] MEDS: LATANOPROST 0.005% OP SOLN 2.5 ML BTL OP SCH (00:17)
[2025-07-15] MEDS: IPRATROPIUM BROMIDE NASAL SPRAY 0.06% 15ML NAE SCH (00:17)
[2025-07-15] MEDS: KETOROLAC TROMETHAMINE 15 MG/ML VIAL IV PRN (02:07)
[2025-07-15 06:33] LABS: Hematocrit (blood only) 31.7 % (37.0-47.0); Hemoglobin 10.6 g/dl (12.0-16.0); Immature Granulocytes # (auto) 0.01 K/uL (0.01-0.20); Immature Granulocytes % (auto) 0.2 %; Mean Corpuscular Hemoglobin 26.5 pg (25.0-34.0); Mean Corpuscular Volume 79.3 fL (80.0-100.0); Platelet Count 297 K/uL (130-400); RDW Standard Deviation 46.7 fL (36.4-46.3); Red Blood Count 4.00 M/uL (4.20-5.40); White Blood Count 5.90 K/ul (4.8-10.8)
[2025-07-15 06:52] LABS: Alanine Aminotransferase 46.0 U/L (7-52); Albumin Globulin Ratio 1.2 (0.9-2); Alkaline Phosphatase 230.0 U/L (34-104); Anion Gap 7.0 (3-11); Bilirubin,Total 0.5 mg/dl (0.2-1.0); Blood Urea Nitrogen 12.0 mg/dl (6-23); Calcium 9.1 mg/dl (8.6-10.3); Carbon Dioxide 28.0 mmol/L (21-32); Chloride 106.0 mmol/L (98-107); Creatinine Clr Calc Pharmacy 41.5 ml/min; Globulin 2.8 gm/dl (2.5-4.0); Glucose 94.0 mg/dl (70-99(Fasting)); Potassium 3.6 mmol/L (3.5-5.1); Sodium 141.0 mmol/L (136-145); Total Protein 6.1 gm/dl (6.0-8.3)
[2025-07-15] MEDS: NSS + 20MEQ KCL 20 MEQ/1,000 ML BAG IV SCH (08:45)
[2025-07-15] MEDS: ESCITALOPRAM OXALATE 20 MG TAB PO SCH (08:48)
--- NOTE | 2025-07-15 09:56 | Surgery Consultation ---
Date of Consultation July 15, 2025 Assessment & Plan (1) Sigmoid diverticulitis: (2) Colonic diverticular abscess: (3) Perforation of sigmoid colon due to diverticulitis: Plan 64 yo female with intermittent lower abdominal pain for a few months with increasing pain in last [address] scan showing sigmoid diverticulitis with microperforation and development of phlegmon vs small abscess 2.8 cm. History of prior diverticulitis with abscess. Afebrile, vss, abdomen soft, without peritonitis but tenderness in the right lower to mid abdomen . No acute surgical intervention recommended at this time. Will need at least 2-3 days of IV antibiotics pending clinical improvement given abscess and transition to oral antibiotics on discharge. Clear liquids diet today. Will follow along. Discussed with Dr. nails who agrees with above. History of Present Illness Reason for Consultation: Sigmoid diverticulitis with abscess Requesting Physician: Alonzo Hilliard MD Attending Physician: Alonzo Hilliard MD History of Present Illness Amy is a 64 yo female with history of major depression, osteoporosis, hyperlipidemia, esophagitis, dysphagia, anxiety, who presented to ED with abdominal pain in the Right lower abdomen. States pain has been off and on for a few months , worse after eating and better with bowel movements however starting had increasing severe pain and presented to ED. History of diverticulitis with abscess a few years ago. Admitted and stayed in hospital for 2-3 days. Colonoscopy in 2022 which showed diverticulosis of sigmoid colon per reports. She states her pain was about 4/10. Denies of any difficulty u rinating or blood in urine, blood in stools, constipation, black/tarry stools , fever, or chills. Currently states feeling better. Pain about the same and not worse. No fever or chills. No nausea or vomiting. Tolerating clear liquids. Allergies Allergy/AdvReac Type Severity Reaction Status Date / Time No Known Drug Allergies Allergy Verified 05/02/25 12:50 Home Medications Medication Instructions Recorded Confirmed Type multivitamin 1 tab PO DAILY #90 tabs 07/01/19 07/14/25 Rx calcium carbonate 500 mg PO DAILY 02/27/23 07/14/25 History cholecalciferol (vitamin D3) 50 50 mcg PO DAILY 02/27/23 07/14/25 History mcg (2,000 unit) capsule (Vitamin D3) ibuprofen 200 mg tablet (Advil) 200 mg PO Q6H PRN Pain 02/27/23 07/14/25 History lactobacillus combo no.11 15 1 cap PO DAILY 02/27/23 07/14/25 History billion cell sprinkle capsule (Probiotic) diclofenac sodium 1 % topical gel 2 g topical QID PRN Pain #100 grams 11/16/23 07/14/25 Rx (Voltaren Arthritis Pain) moringa 750 mg PO DAILY 08/26/24 07/14/25 History polyethylene glycol 3350 17 17 g PO DAILY PRN Constipation 08/26/24 07/14/25 History gram/dose oral powder (Miralax) psyllium seed (sugar) oral powder 1 tbsp PO DAILY PRN Constipation 08/26/24 07/14/25 History (Metamucil (sugar) oral powder) hydrocortisone 2.5 % topical cream 1 applic [place] DAILY PRN hemorrhoids 02/24/25 07/14/25 Rx with perineal applicator #30 grams (Anusol-HC) lovastatin 40 mg tablet 40 mg PO HS #90 tabs 02/24/25 07/14/25 Rx omeprazole 20 mg capsule,delayed 20 mg PO BID #180 caps 02/24/25 07/14/25 Rx release bupropion HCl 150 mg tablet,12 hr 300 mg (2 x 150 mg) PO DAILY #180 04/30/25 07/14/25 Rx sustained-release (Wellbutrin SR) ea escitalopram oxalate 20 mg tablet 20 mg PO QAM #90 tabs 04/30/25 07/14/25 Rx ipratropium bromide 42 mcg (0.06 2 spray intranasal QID #15 mL 05/02/25 07/14/25 Rx %) nasal spray latanoprost 0.005 % eye drops 1 drp ophthalmic (eye) HS 05/02/25 07/14/25 History clotrimazole-betamethasone 1 1 appln topical BID PRN Other 07/14/25 07/14/25 History %-0.05 % topical cream magnesium 1 tab PO HS PRN Other 07/14/25 07/14/25 History Patient History Medical History (Updated 07/14/25 @ 21:59 by Nirmala Bowman MD) Sinusitis Cough Thyroid pain Rib pain on right side Encounter for pre-operative examination Diverticulitis of intestine with abscess Pre-procedural laboratory examination Nausea and vomiting Right lower quadrant pain Left lower quadrant abdominal pain Well adult health check Weight gain Diverticulosis Abdominal pain Pap smear for cervical cancer screening Nevus of cheek Screening mammogram, encounter for Rectal leakage Dysphagia Dyspnea Colon cancer screening History of COVID-19 03/01/23, home test, not hosp; cough, "full of mucous">resolved w/exception of lingering cough as of 03/16/23---spoke with pt and 03/21/23 pt is currently on antibiotic/tessalon perles for cough (states cough is slowing improving--pt aware to notify PAT if still experiencing cough 03/31 prior to sx) Dyspnea denies Dysphagia resolved Arthritis Nausea and vomiting after administration of anesthetic agent Panic attacks Diplopia present Anderson esophagus Anxiety Diverticulitis recent in Oct 2022 at [facility], resolved per pt GERD with esophagitis Surgical History Hx of left cataract extraction History of cholecystectomy History of esophagogastroduodenoscopy (EGD) History of stapedectomy bilat H/O arthroscopic knee surgery right History of hip surgery bilat hip replacements History of colonoscopy Family History Mother Stroke CHF (congestive heart failure) Brother Rheumatic fever Social History Smoking Status: Never smoker Tobacco Type: Declines Second Hand Exposure: No; Do You Dip or Chew Tobacco: No; Hx Alcohol Use: Yes Alcohol type: wine Hx Substance Use: No Preferred Language: Lao Communication Ability: Effective Visual Impairment: Limited Hearing Ability: Hard of Hearing Customer Care Representative Required: No Beliefs That Will Affect Care: Jainism Jainism Beliefs: Cheondoism no blood products marital status: Current Living Situation: Spouse current occupational status: unemployed Feels Safe at Home: Yes Childhood Exposure to Second-Hand Smoke: Yes Dental Care, Regularly: Yes Physical Activity Frequency: Does not Exercise Seatbelt Use: always Sunscreen Use: Yes Assistive Devices: Glasses Review of Systems Review of Systems: All systems reviewed & are unremarkable except as noted in HPI & below Physical Exam Constitutional: WD/WN, vitals as above cooperative and comfortable; no acute distress and not ill appearing Respiratory: normal respiratory effort, lungs clear to auscultation Cardiovascular: RRR, no murmur, no edema Gastrointestinal (Abdomen): Inspection/Auscultation: abdomen normal to inspection; abdomen not distended Percussion/Palpation: + abdomen tender (right to mid lower abdomen) and abdomen soft; no guarding Skin: no rashes, warm and dry Psychiatric: Orientation: alert and oriented x 3 Results & Data Vital Signs (Past 12 Hours) Vital Signs Temp Pulse Pulse Pulse Resp BP BP 07/15/25 08:04 70 18 100/65 07/15/25 07:39 36.7 C 61 16 07/14/25 22:15 37 C 70 18 135/71 07/14/25 22:06 71 18 123/73 07/14/25 22:00 70 18 BP Pulse Ox O2 Del Method 07/15/25 08:04 91 Room Air 07/15/25 07:39 94/59 L 90 Room Air 07/14/25 22:15 93 Room Air 07/14/25 22:06 95 Room Air 07/14/25 22:00 123/73 97 Room Air Laboratory Results 07/15/25 07/14/25 07/14/25 Range/Units 06:08 20:29 16:30 WBC 5.90 8.56 (4.8-10.8) K/ul RBC 4.00 L 4.52 (4.20-5.40) M/uL Hgb 10.6 L 11.9 L (12.0-16.0) g/dl Hct 31.7 L 36.2 L (37.0-47.0) % MCV 79.3 L 80.1 (80.0-100.0) fL MCH 26.5 26.3 (25.0-34.0) pg MCHC 33.4 32.9 (32.0-36.0) g/dL RDW Std Deviation 46.7 H 47.8 H (36.4-46.3) fL RDW Coeff of Patrica 16.2 H 16.4 H (11.5-14.5) % Plt Count 297 340 (130-400) K/uL MPV 9.5 9.5 (9.4-12.4) fL Immature Gran % (Auto) 0.2 0.4 % Neut % (Auto) 58.2 73.4 % Lymph % (Auto) 29.8 15.8 % Hinds % (Auto) 10.8 9.7 % Eos % (Auto) 0.3 0.1 % Baso % (Auto) 0.7 0.6 % Neut # (Auto) 3.43 6.29 (1.40-6.50) K/uL Lymph # (Auto) 1.76 1.35 (1.20-3.40) K/uL Hinds # (Auto) 0.64 H 0.83 H (0.11-0.59) K/uL Eos # (Auto) 0.02 0.01 (0.00-0.50) K/uL Baso # (Auto) 0.04 0.05 (0.00-0.20) K/uL Immature Gran # (Auto) 0.01 0.03 (0.01-0.20) K/uL PT 10.7 (9.0-12.0) Seconds INR 1.0 (0.9-1.1) Sodium 141 141 (136-145) mmol/L Potassium 3.6 4.0 (3.5-5.1) mmol/L Chloride 106 106 (98-107) mmol/L Carbon Dioxide 28 28 (21-32) mmol/L Anion Gap 7 7 (3-11) BUN 12 12 (6-23) mg/dl Creatinine 1.00 1.01 (0.6-1.2) mg/dl Est Cr Clr Drug Dosing 41.5 41.0 ml/min eGFR 62.13 61.40 BUN/Creatinine Ratio 12.0 11.9 (10-20) Glucose 94 105 H (70-99(Fasting)) mg/dl Lactate 0.8 (0.4-2.0) mmol/L Calcium 9.1 9.9 (8.6-10.3) mg/dl Total Bilirubin 0.5 0.4 (0.2-1.0) mg/dl AST 36 48 H (13-39) U/L ALT 46 58 H (7-52) U/L Alkaline Phosphatase 230 H 266 H (34-104) U/L C-Reactive Protein 4.51 H (0-0.5) mg/dl Total Protein 6.1 7.2 (6.0-8.3) gm/dl Albumin 3.3 L 3.8 (3.4-5.0) gm/dl Globulin 2.8 3.4 (2.5-4.0) gm/dl Albumin/Globulin Ratio 1.2 1.1 (0.9-2) Lipase 11 (11-82) U/L Urine Color Yellow Urine Appearance Clear (Clear) Urine pH 5.5 (4.5-7.5) Ur Specific [place] 1.010 (1.000-1.030) Urine Protein Negative (Negative) Urine Glucose (UA) Negative (Negative) Urine Ketones Negative (Negative) Urine Blood Negative (Negative) Urine Nitrite Negative (Negative) Urine Bilirubin Negative (Negative) Urine Urobilinogen Negative (Negative) Ur Leukocyte Esterase Negative (Negative) Urine Comment Diagnostic Findings EXAMINATION: CT of the abdomen and pelvis performed after the administration of IV contrast TECHNIQUE: Helical CT images from the lung bases through the symphysis pubis were obtained with contrast. Coronal and sagittal reformatted images were generated at a workstation for further assessment. Dose reduction techniques were achieved by using automatic exposure control and/or adjustment of mA and/or kV according to patient size and/or use of iterative reconstruction technique. COMPARISON: None HISTORY: Abdominal pain FINDINGS: Lower chest: No consolidation. No pleural effusion or pneumothorax. Liver: No suspicious liver lesions. Portal veins appear patent. Gallbladder: Cholecystectomy. Spleen: Normal size. Pancreas: No suspicious pancreatic lesions. The pancreatic duct is not dilated. Adrenal glands: No adrenal nodules. Kidneys: No hydronephrosis or obstructing renal stones. Bladder / Pelvic organs: Unremarkable. Bowel: No bowel obstruction. There is an area of wall thickening and inflammatory fat stranding involving the sigmoid colon. Superior to the sigmoid colon, is an ill-defined and partially formed region of fluid, with scattered areas of some thin rim enhancement and also which contains internal air, measuring 2.8 x 2.5 cm. The appendix is unremarkable. Hiatal hernia. Lymph nodes: No retroperitoneal, mesenteric, or pelvic lymphadenopathy. Peritoneum / Retroperitoneum: There is no connor free air in the peritoneum. There is an area of contained perforation near the sigmoid colon, as above. Vessels: No infrarenal aortic aneurysm. Bones and soft tissues: No suspicious lesion in the bones. Bilateral total hip arthroplasty. IMPRESSION: Sigmoid diverticulitis, with a focal area of contained perforation, and incompletely formed fluid, consistent with phlegmon and possible early abscess formation, measuring 2.8 cm in diameter. I personally reviewed CT scan images and concur with above findings.
--- NOTE | 2025-07-15 19:15 | Hospitalist Progress Note ---
Date of Service July 15, 2025 Assessment & Plan (1) Sigmoid diverticulitis: (2) Transaminitis: (3) Major depression, recurrent: Plan 64 yo female who presented to the ED with abdominal pain. CT a/p with complicated sigmoid diverticulitis including contained microperforation & abs cess vs phlegmon - 2.8cm in length. Also with prior h/o complicated diverticulitis of the sigmoid colon in 2021, Anderson's esophagus, GERD with Esophagitis, Gastritis, Hyperlipidemia, previous Cholecystectomy, Major Depression, Panic Attacks, Anxiety. # Acute Complicated Diverticulitis - -general surgery consulted and appreciate their recs -defer dietary management to surgery -abscess vs phlegmon is <3cm; no need for IR drainage, etc at this time -clears ordered by gen surg -add IVF -Zosyn IV q8h -Toradol prn pain -Zofran prn N/V # Transaminitis - -mild elevation in AST and ALT along with alk phos but t.bili wnl -repeat LFTs in am tomorrow -she does not have a gall bladder and has no upper abd pain -etiology? reactive? # Hyperlipidemia - -Hold Statin due to abnormal LFTs # Major Depression, Recurrent - -Continue Bupropion 300 mg and Escitalopram 20 mg # Mildly low MCV - -check Fe studies in am #Anderson's esophagus - -cont PPI twice daily given that this is her 2nd documented case of complicated diverticulitis of the sigmoid region with abscess -- should patient have elective sigmoid resection down the line/in the future? consider referral to colo-rectal surgery after discharge DVT proph - chemical means deferred; low risk; ambulation Admission and Anticipated Discharge Date Admission Date: July 14, 2025 Subjective patient reports mild pain in b/l lower quadrants some of the pain is in her lower back moving around and taking deep breaths also provokes the abd pain had a normal BM this am without any blood no vomiting tolerating clears had another episode of complicated diverticulitis in 2021 - same location (sigmoid) and had diverticular abscess that did not need drainage last colonoscopy 2022 - via [facility] system - sigmoid diverticular disease Review of Systems Review of Systems: gen - no fevers or chills cv - no chest pain pulm - no cough or dyspnea Physical Exam Physical Exam: gen - NAD, pleasant, nontoxic mouth - MMM neck - no JVD heart - RRR, s1 s2, no murmur lungs - CTA b/l abd - soft, tender b/l lower quadrants to palpation, BS+, no peritoneal signs, no HSM ext - no edema, pulses 2+ b/l Results & Data Results & Data Vital Signs (Past 12 Hours) Vital Signs Temp Pulse Resp BP BP Pulse Ox O2 Del Method 07/15/25 14:23 36.4 C L 85 16 108/55 L 99 Room Air 07/15/25 08:04 70 18 100/65 91 Room Air 07/15/25 07:39 36.7 C 61 16 94/59 L 90 Room Air Laboratory Results Laboratory Results - last 48 hr 07/14/25 07/14/25 07/15/25 16:30 20:29 06:08 WBC 8.56 5.90 RBC 4.52 4.00 L Hgb 11.9 L 10.6 L Hct 36.2 L 31.7 L MCV 80.1 79.3 L MCH 26.3 26.5 MCHC 32.9 33.4 RDW Std Deviation 47.8 H 46.7 H RDW Coeff of Patrica 16.4 H 16.2 H Plt Count 340 297 MPV 9.5 9.5 Immature Gran % (Auto) 0.4 0.2 Neut % (Auto) 73.4 58.2 Lymph % (Auto) 15.8 29.8 [place] % (Auto) 9.7 10.8 Eos % (Auto) 0.1 0.3 Baso % (Auto) 0.6 0.7 Neut # (Auto) 6.29 3.43 Lymph # (Auto) 1.35 1.76 [place] # (Auto) 0.83 H 0.64 H Eos # (Auto) 0.01 0.02 Baso # (Auto) 0.05 0.04 Immature Gran # (Auto) 0.03 0.01 PT 10.7 INR 1.0 Sodium 141 141 Potassium 4.0 3.6 Chloride 106 106 Carbon Dioxide 28 28 Anion Gap 7 7 BUN 12 12 Creatinine 1.01 1.00 Est Cr Clr Drug Dosing 41.0 41.5 eGFR 61.40 62.13 BUN/Creatinine Ratio 11.9 12.0 Glucose 105 H 94 Lactate 0.8 Calcium 9.9 9.1 Total Bilirubin 0.4 0.5 AST 48 H 36 ALT 58 H 46 Alkaline Phosphatase 266 H 230 H C-Reactive Protein 4.51 H Total Protein 7.2 6.1 Albumin 3.8 3.3 L Globulin 3.4 2.8 Albumin/Globulin Ratio 1.1 1.2 Lipase 11 Urine Color Yellow Urine Appearance Clear Urine pH 5.5 Ur Specific [place] 1.010 Urine Protein Negative Urine Glucose (UA) Negative Urine Ketones Negative Urine Blood Negative Urine Nitrite Negative Urine Bilirubin Negative Urine Urobilinogen Negative Ur Leukocyte Esterase Negative Urine Comment Diagnostic Findings Abdomen/Pelvis CT 07/14/25 16:18 EXAMINATION: CT of the abdomen and pelvis performed after the administration of IV contrast TECHNIQUE: Helical CT images from the lung bases through the symphysis pubis were obtained with contrast. Coronal and sagittal reformatted images were generated at a workstation for further assessment. Dose reduction techniques were achieved by using automatic exposure control and/or adjustment of mA and/or kV according to patient size and/or use of iterative reconstruction technique. COMPARISON: None HISTORY: Abdominal pain FINDINGS: Lower chest: No consolidation. No pleural effusion or pneumothorax. Liver: No suspicious liver lesions. Portal veins appear patent. Gallbladder: Cholecystectomy. Spleen: Normal size. Pancreas: No suspicious pancreatic lesions. The pancreatic duct is not dilated. Adrenal glands: No adrenal nodules. Kidneys: No hydronephrosis or obstructing renal stones. Bladder / Pelvic organs: Unremarkable. Bowel: No bowel obstruction. There is an area of wall thickening and inflammatory fat stranding involving the sigmoid colon. Superior to the sigmoid colon, is an ill-defined and partially formed region of fluid, with scattered areas of some thin rim enhancement and also which contains internal air, measuring 2.8 x 2.5 cm. The appendix is unremarkable. Hiatal hernia. Lymph nodes: No retroperitoneal, mesenteric, or pelvic lymphadenopathy. Peritoneum / Retroperitoneum: There is no connor free air in the peritoneum. There is an area of contained perforation near the sigmoid colon, as above. Vessels: No infrarenal aortic aneurysm. Bones and soft tissues: No suspicious lesion in the bones. Bilateral total hip arthroplasty. IMPRESSION: Sigmoid diverticulitis, with a focal area of contained perforation, and incompletely formed fluid, consistent with phlegmon and possible early abscess formation, measuring 2.8 cm in diameter. Electronically signed by Keven Huitron 07-14-2025 5:57 PM PG Care Time/CCT Total # of Minutes Spent Total Time Spent with Patient: Total time spent is greater than 50% in coordination of care (as documented) at patient's floor/unit and/or counseling patient: Coding Level of Care Code 14784 SUB INP/OBS CARE MIN Diagnoses Sigmoid diverticulitis K57.32 Transaminitis R74.01 Major depression, recurrent F33.9
[2025-07-16 08:36] LABS: Hematocrit (blood only) 32.7 % (37.0-47.0); Hemoglobin 10.3 g/dl (12.0-16.0); Immature Granulocytes # (auto) 0.01 K/uL (0.01-0.20); Immature Granulocytes % (auto) 0.2 %; Mean Corpuscular Hemoglobin 25.7 pg (25.0-34.0); Mean Corpuscular Volume 81.5 fL (80.0-100.0); Platelet Count 293 K/uL (130-400); RDW Standard Deviation 49.0 fL (36.4-46.3); Red Blood Count 4.01 M/uL (4.20-5.40); White Blood Count 5.08 K/ul (4.8-10.8)
[2025-07-16 08:51] LABS: Alanine Aminotransferase 36.0 U/L (7-52); Albumin Globulin Ratio 1.1 (0.9-2); Alkaline Phosphatase 198.0 U/L (34-104); Anion Gap 5.0 (3-11); Bilirubin,Total 0.4 mg/dl (0.2-1.0); Blood Urea Nitrogen 7.0 mg/dl (6-23); Calcium 8.7 mg/dl (8.6-10.3); Carbon Dioxide 27.0 mmol/L (21-32); Chloride 109.0 mmol/L (98-107); Creatinine Clr Calc Pharmacy 43.2 ml/min; Globulin 2.9 gm/dl (2.5-4.0); Glucose 120.0 mg/dl (70-99(Fasting)); Iron 32.0 mcg/dl (35-150); Magnesium 2.0 mg/dl (1.7-2.4); Potassium 3.8 mmol/L (3.5-5.1); Sodium 141.0 mmol/L (136-145); Total Iron Binding Cap Calc 314.0 mcg/dl (250-450); Total Protein 6.2 gm/dl (6.0-8.3); Transferrin 224.0 mg/dl (200-360); Transferrin (FE) Percent Satur 10.0 % (15-50)
[2025-07-16 09:09] LABS: Ferritin 30.2 ng/ml (8-388)
--- NOTE | 2025-07-16 09:21 | Surgery Progress Note ---
Date of Service July 16, 2025 Assessment & Plan (1) Sigmoid diverticulitis: Plan: responding to IV abx, continue advance full liquids rsponding well possible regular diet in AM and home on po abx Admission and Anticipated Discharge Date Admission Date: July 14, 2025 Subjective pain controlled AF VSS some loose stools Review of Systems Constitutional: no fever and no chills Eyes: no problem reported Ear, Nose, Mouth, Throat: no problem reported Respiratory: no cough and no dyspnea Cardiovascular: no chest pain Gastrointestinal: + change in bowel habits; no nausea and no vomiting Musculoskeletal: no back pain Neurologic: no localized weakness and no generalized weakness Psychiatric: no behavioral changes Hematologic / Lymphatic: no easy bleeding and no easy bruising Physical Exam Constitutional: WD/WN, vitals as above Eyes: no scleral abnormality Respiratory: normal respiratory effort Cardiovascular: Rate/Rhythm: regular rate and regular rhythm Gastrointestinal (Abdomen): Inspection/Auscultation: abdomen normal to inspection and normal bowel sounds; abdomen not distended Percussion/Palpation: + abdomen tender (mild) and abdomen soft; no guarding and abdomen not rigid Musculoskeletal: Head/Neck/Chest: normocephalic and head atraumatic Skin: no rashes, warm and dry Results & Data Vital Signs (Past 12 Hours) Vital Signs Temp Pulse Resp BP BP Pulse Ox O2 Del Method 07/16/25 07:04 36.7 C 64 18 123/73 94 Room Air 07/15/25 23:05 36.6 C 64 18 116/71 94 Room Air
--- NOTE | 2025-07-16 12:23 | Hospitalist Progress Note ---
Date of Service July 16, 2025 Assessment & Plan (1) Sigmoid diverticulitis: (2) Transaminitis: (3) Major depression, recurrent: Plan 64 yo female who presented to the ED with abdominal pain. CT a/p with complicated sigmoid diverticulitis including contained microperforation & abs cess vs phlegmon - 2.8cm in length. Also with prior h/o complicated diverticulitis of the sigmoid colon in 2021, Anderson's esophagus, GERD with Esophagitis, Gastritis, Hyperlipidemia, previous Cholecystectomy, Major Depression, Panic Attacks, Anxiety. # Acute Complicated Diverticulitis - General surgery consulted - nonoperative management, continue IV antibiotics, advance diet to full liquids this evening continue Zosyn Second epsiode of complicated diverticulitis of the sigmoid region with abscess -- offer referall to colo - rectal for elective sigmoid resection in the future Continue IV fluids, will decrease rate to 80 # Transaminitis - -mild elevation in AST and ALT along with alk phos but t.bili wnl. AST and ALT have normalizied ALK phos remains elevated but downtrending # Hyperlipidemia - -Hold Statin due to abnormal LFTs # Major Depression, Recurrent - -Continue Bupropion 300 mg and Escitalopram 20 mg # Mildly low MCV - -reports hx of IRAM, was on iron supplemented previously Fe studies consisted with IRAM, resume PO supplementation 3x/week #Anderson's esophagus - -cont PPI twice daily DVT proph - chemical means deferred; low risk; ambulation Dispo: continued inpatient stay for IV antibiotics, diet advacnement. possible d/c tomorrow Admission and Anticipated Discharge Date Admission Date: July 14, 2025 Subjective patient seen lying in bed. Denies pain, even with meals. No nausea. Some loose stools, denies history of C. difficile. Is eager for diet advancement Review of Systems Review of Systems: All systems reviewed & are unremarkable except as noted in Subjective Physical Exam Physical Exam: General: NAD, VS as above Resp: normal respiratory effort, lungs clear to auscultation CV: RRR, no murmur, Abd: normal bowel sounds, non tender, no hepatosplenomegaly Extremities: Moves all extremities, no edema Neuro: A&O x3, Results & Data Results & Data Vital Signs (Past 12 Hours) Vital Signs Temp Pulse Resp BP Pulse Ox O2 Del Method 07/16/25 07:04 98.1 F 64 18 123/73 94 Room Air Laboratory Results CBC and chemistry reviewed Magnesium reviewed Iron studies reviewed PG Care Time/CCT Total # of Minutes Spent Total Time Spent with Patient: Total time spent is greater than 50% in coordination of care (as documented) at patient's floor/unit and/or counseling patient: Coding Level of Care Code 94734 SUB INP/OBS CARE 3/50MIN Diagnoses Sigmoid diverticulitis K57.32 Transaminitis R74.01 Major depression, recurrent F33.9
[2025-07-16] MEDS: FERROUS SULFATE 325 MG TAB PO SCH (12:42)
[2025-07-16 16:50] VITALS: TEMP 98.1
[2025-07-17 06:59] VITALS: BP 112/67; PULSE 67; RESP 18; O2SAT 94
--- NOTE | 2025-07-17 12:01 | Discharge Summary ---
Discharge Summary Date of Service July 17, 2025 Principal Dx & Hospital Course #1 = Principal Diagnosis (1) Sigmoid diverticulitis: (2) Transaminitis: (3) Major depression, recurrent: Plan # Acute Complicated Diverticulitis - 64 yo female with h/o complicated diverticulitis of the sigmoid colon in 2021, Anderson's esophagus, GERD with Esophagitis, Gastritis, Hyperlipidemia, previous Cholecystectomy, Major Depression, Panic Attacks, Anxiety. who presented to the ED with abdominal pain. CT a/p with complicated sigmoid diverticulitis including contained microperforation & abscess vs phlegmon - 2.8cm in length. Received IV zosyn. General surgery consulted - nonoperative management, continue antibiotics, advance diet. Patient tolerating diet well, stable for transition to PO antibiotics and discharge home. Augmentin BID x 10 days Second epsiode of complicated diverticulitis of the sigmoid region with abscess -- Recommend colo-rectal for elective sigmoid resection in the future. patient prefers to talk to her PCP about this # Transaminitis - -mild elevation in AST and ALT along with alk phos but t.bili wnl. AST and ALT have normalizied. ALK phos remains elevated but downtrending Consider repeat CMP in a week or so # Hyperlipidemia - continue statin # Major Depression, Recurrent - -Continue Bupropion 300 mg and Escitalopram 20 mg # Mildly low MCV -reports hx of IRAM, was on iron supplemented previously. Fe studies consisted with IRAM, resume PO supplementation 3x/week #Anderson's esophagus -cont PPI twice daily dispo: discharge to home Notes For Next Care Provider recommend colorectal referral consider repeat CMP Medication Changes From Visit course of augmentin Fe supplement started Admission HPI Per Admitting Provider Pt is a 64 yo female presenting to the ED with abdominal pain. PMHx includes diverticulitis of intestine with abscess, GERD with Esophagitis, Gastritis, Hyperlipidemia, Cholecystectomy, Major Depression - recurrent, Panic Attacks, Anxiety. Pt reports vague right lower quadrant abdominal pain for "a number of months." However, she states that her pain has been significantly worse over the last 5 days. Reports that when she eats anything, she starts having pain 30 minutes after in her abdomen and then she has a bowel movement and her pain improves. She rates the pain a 4 out of 10 currently, but states that it does become a 10 out of 10 at its worst. She describes the pain as crampy and intermittently sharp. The pain does not radiate. On physical exam in the ED, pt is AOx3, inspection shows a flat abdomen in the supine position with no markings or irregularities. On palpation, pt has general pain in the abdomen, with specific pain on light touch in the RLQ. Peritonitis signs are negative. On auscultation of the gut, bowel sounds heard. Cardiac auscultation sounds S1 & S2 with no murmurs, rubs or gallops. On respiratory auscultation, vesicular sounds heard throughout. Pt denies any fevers, muscle aches or myalgia. Further, pt denies any nausea or vomiting. She does report intermittent diarrhea over the last few months. Dysuria or hematuria are negative. Patient is admitted for diverticulitis to [facility]. Discharge Exam General: NAD, VS as above Resp: normal respiratory effort, lungs clear to auscultation CV: RRR, no murmur, Abd: normal bowel sounds, non tender, no hepatosplenomegaly Extremities: Moves all extremities, no edema Neuro: A&O x3, Discharge Plan Discharge Items Patient Disposition: Home - Self-Care Reason For Visit: DIVERTICULITIS Discharge Diagnosis: diverticular abscess Condition on Discharge: Fair Activity: Resume your previous activity Driving/Machine Use: No limitations Weightbearing: Full weightbearing Non-emergency contact: Primary Care Provider Call non-emergency contact if: you have any medication questions, your symptoms worsen and your temperature is above 101 Follow-up/Referrals: Brendon Garay DO [Primary Care Provider] - (follow up within one week ) Diet: Low Fiber Addtl Attending Provider Instructions: Ms. Sevilla, You were hospitalized after having a diverticular abscess that thankfully did not have to have surgery to have this drained. You were treated with IV antibiotics with rapid improvement of your symptoms. You will be continued on oral antibiotics for another 10 more days. This will be augmentin, take this with food. Take the first dose tonight with dinner. Please follow a low fiber diet until your bowels return to normal, a handout is provided below. There is concern since this has happened for a second time, you should be seen by colorectal surgery for possible colon resection. You have opted to talk to your PCP about this for a referral. You were found to be iron deficient and started on oral iron supplementation 3 times a week. Please purchase this over the counter. No other changes to your home medications. Please follow up with your PCP within one week. Return to the ER with severe chest pain, shortness of breath or severe abdominal pain. Pending Studies at Discharge: No Stand-Alone Forms: My [facility] Medications and DC Order Prescriptions: New amoxicillin-pot clavulanate 875-125 mg tablet 1 tab PO BID Qty: 20 0RF ferrous sulfate 325 mg (65 mg iron) Tablet,Delayed Release (Dr/Ec) 325 mg PO MoWeFr@0900 Qty: 30 0RF Continued diclofenac sodium [Voltaren Arthritis Pain] 1 % gel 2 g topical QID PRN (Reason: Pain) Qty: 100 0RF Rx Instructions: apply to single elbow, wrist or hand; for hand includes palm/fingers/back of hand escitalopram oxalate 20 mg tablet 20 mg PO QAM Qty: 90 0RF bupropion HCl [Wellbutrin SR] 150 mg tablet sustained-release 12 hr 300 mg PO DAILY Qty: 180 0RF moringa 750 mg PO DAILY polyethylene glycol 3350 [Miralax] 17 gram/dose powder 17 g PO DAILY PRN (Reason: Constipation) Metamucil (sugar) Powder 1 tbsp PO DAILY PRN (Reason: Constipation) multivitamin tablet 1 tab PO DAILY Qty: 90 3RF latanoprost 0.005 % drops 1 drp ophthalmic (eye) HS ipratropium bromide 42 mcg (0.06 %) spray,non-aerosol 2 spray intranasal QID Qty: 15 6RF Rx Instructions: administer into each nostril lovastatin 40 mg tablet 40 mg PO HS Qty: 90 3RF omeprazole 20 mg capsule,delayed release(DR/EC) 20 mg PO BID Qty: 180 3RF Hold Instructions: order change hydrocortisone [Anusol-HC] 2.5 % cream with perineal applicator 1 applic [place] DAILY PRN (Reason: hemorrhoids) Qty: 30 0RF calcium carbonate 500 mg calcium (1,250 mg) Tablet 500 mg PO DAILY ibuprofen [Advil] 200 mg Tablet 200 mg PO Q6H PRN (Reason: Pain) cholecalciferol (vitamin D3) [Vitamin D3] 50 mcg (2,000 unit) Capsule 50 mcg PO DAILY Probiotic 15 billion cell Capsule, Sprinkle 1 cap PO DAILY Rx Instructions: do not crush/chew/cut; swallow whole OR may open and sprinkle in cold drink/food magnesium 1 tab PO HS PRN (Reason: Other) clotrimazole-betamethasone 1-0.05 % cream 1 appln topical BID PRN (Reason: Other) Discharge Orders: Discharge Order (Routine); Ordered 07/17/25 Ordered By: Kim Platt Admission Data Admit Date/Time: 07/14/25 20:34 Attending Provider: Deb Santo Admit Provider: Nirmala Bowman Primary Care Provider: Brendon Garay Other Providers: Charles Mcclure; Otilia Plummer Hospital Stay Data Consultations 07/14/25 18:44 Consult General Surgery Routine 07/14/25 18:51 ED Decision to Admit Stat 07/14/25 22:29 Consult General Surgery Routine Diagnostic Imagining Performed Abdomen/Pelvis CT 07/14/25 16:18 EXAMINATION: CT of the abdomen and pelvis performed after the administration of IV contrast TECHNIQUE: Helical CT images from the lung bases through the symphysis pubis were obtained with contrast. Coronal and sagittal reformatted images were generated at a workstation for further assessment. Dose reduction techniques were achieved by using automatic exposure control and/or adjustment of mA and/or kV according to patient size and/or use of iterative reconstruction technique. COMPARISON: None HISTORY: Abdominal pain FINDINGS: Lower chest: No consolidation. No pleural effusion or pneumothorax. Liver: No suspicious liver lesions. Portal veins appear patent. Gallbladder: Cholecystectomy. Spleen: Normal size. Pancreas: No suspicious pancreatic lesions. The pancreatic duct is not dilated. Adrenal glands: No adrenal nodules. Kidneys: No hydronephrosis or obstructing renal stones. Bladder / Pelvic organs: Unremarkable. Bowel: No bowel obstruction. There is an area of wall thickening and inflammatory fat stranding involving the sigmoid colon. Superior to the sigmoid colon, is an ill-defined and partially formed region of fluid, with scattered areas of some thin rim enhancement and also which contains internal air, measuring 2.8 x 2.5 cm. The appendix is unremarkable. Hiatal hernia. Lymph nodes: No retroperitoneal, mesenteric, or pelvic lymphadenopathy. Peritoneum / Retroperitoneum: There is no connor free air in the peritoneum. There is an area of contained perforation near the sigmoid colon, as above. Vessels: No infrarenal aortic aneurysm. Bones and soft tissues: No suspicious lesion in the bones. Bilateral total hip arthroplasty. IMPRESSION: Sigmoid diverticulitis, with a focal area of contained perforation, and incompletely formed fluid, consistent with phlegmon and possible early abscess formation, measuring 2.8 cm in diameter. Electronically signed by Keven Huitron 07-14-2025 5:57 PM Pending Results Patient Have Any Pending Studies at Discharge: No Discharge Instructions Given to Patient (Per Discharging Provider) Ms. Sevilla, You were hospitalized after having a diverticular abscess that thankfully did not have to have surgery to have this drained. You were treated with IV a ntibiotics with rapid improvement of your symptoms. You will be continued on oral antibiotics for another 10 more days. This will be augmentin, take this with food. Take the first dose tonight with dinner. Please follow a low fiber diet until your bowels return to normal, a handout is provided below. There is concern since this has happened for a second time, you should be seen by colorectal surgery for possible colon resection. You have opted to talk to your PCP about this for a referral. You were found to be iron deficient and started on oral iron supplementation 3 times a week. Please purchase this over the counter. No other changes to your home medications. Please follow up with your PCP within one week. Return to the ER with severe chest pain, shortness of breath or severe abdominal pain. Total Time Total Time Spent Total Time Spent (In Minutes): Time spent day of discharge 36 minutes including direct patient care, medication reconciliation, documentation, review of labs and images, and coordination of care. case discussed with General surgery JARETT Coding Level of Care Code 23048 INP/OBS DISCH >30 MIN Diagnoses Sigmoid diverticulitis K57.32 Transaminitis R74.01 Major depression, recurrent F33.9
--- NOTE | 2025-07-17 13:20 | Surgery Progress Note ---
Date of Service July 17, 2025 Assessment & Plan (1) Sigmoid diverticulitis: Plan: no leukocytosis avss abdominal pain resolved tolerating diet Plan: Okay from surgical standpoint for discharge with transition to oral abx for another 12 days low fiber diet continue medical management Admission and Anticipated Discharge Date Admission Date: July 14, 2025 Subjective doing well, no abdominal pain tolerating full liquids no n,v ready to go home Physical Exam Constitutional: WD/WN, vitals as above cooperative and comfortable; no acute distress and not ill appearing Skin: no rashes, warm and dry Psychiatric: Orientation: alert and oriented x 3 Results & Data Vital Signs (Past 12 Hours) Vital Signs Temp Pulse Resp BP Pulse Ox O2 Del Method 07/17/25 06:57 36.7 C 67 18 112/67 94 Room Air
== END 2025-07-17 12:26 | disposition home or self-care (01) | DRG 392 ==
LOC: ED 15:55 → SUATTDRO 20:34 → 3W 20:34